=== PATIENT | female | born 1950 | race Caucasian/White ===

== ENCOUNTER 2016-10-01 14:59 | Outpatient (CLI) | payer MEDICARE, OTHER | END 2016-10-01 15:00 | disposition home or self-care (01) | DX: J18.9 Pneumonia, unspecified organism (principal) ==

== ENCOUNTER 2016-10-30 12:39 | Outpatient (CLI) | payer MEDICARE, OTHER | END 2016-10-30 12:40 | disposition home or self-care (01) | DX: J18.9 Pneumonia, unspecified organism (principal) ==

== ENCOUNTER 2016-10-30 14:02 | Outpatient (CLI) | payer MEDICARE, OTHER | END 2016-10-30 14:03 | disposition home or self-care (01) | DX: J84.10 Pulmonary fibrosis, unspecified (principal); J47.9 Bronchiectasis, uncomplicated ==

== ENCOUNTER 2017-02-11 13:11 | Outpatient (CLI) | payer MEDICARE, OTHER | END 2017-02-11 13:12 | disposition home or self-care (01) | DX: J84.10 Pulmonary fibrosis, unspecified (principal); J47.9 Bronchiectasis, uncomplicated ==

== ENCOUNTER 2017-08-06 10:51 | Outpatient (CLI) | payer MEDICARE, OTHER | END 2017-08-06 10:52 | disposition home or self-care (01) | LOC: LAB.F 10:51 | PROVIDERS: ATTEND Registered Nurse | DX: E03.9 Hypothyroidism, unspecified (principal) | CPT/HCPCS: 36415; 84443 ==

== ENCOUNTER 2017-08-10 10:59 | Outpatient (CLI) | payer MEDICARE, OTHER ==
[2017-08-11 04:21] LABS: TEST RESULT REPORT
[2017-08-11 04:25] LABS: TEST RESULT REPORT
== END 2017-08-10 11:00 | disposition home or self-care (01) ==
LOC: LAB.R 10:59
PROVIDERS: ATTEND Nurse Practitioner
DX: E03.9 Hypothyroidism, unspecified (principal)
CPT/HCPCS: 81599; 84439; 84481

== ENCOUNTER 2017-08-12 11:00 | Outpatient (CLI) | payer MEDICARE, OTHER | END 2017-08-12 11:01 | disposition home or self-care (01) | LOC: LAB.F 11:00 | PROVIDERS: ATTEND Registered Nurse | DX: E03.9 Hypothyroidism, unspecified (principal) | CPT/HCPCS: 36415; 84439; 84443; 84481 ==

== ENCOUNTER 2017-09-24 20:49 | Outpatient (CLI) | payer MEDICARE, OTHER | END 2017-09-24 20:50 | disposition critical access hospital (66) | LOC: EMS 20:49 | PROVIDERS: ATTEND Surgery | DX: S69.92XA Unspecified injury of left wrist, hand and finger(s), initial encounter (principal); V48.5XXA Car driver injured in noncollision transport accident in traffic accident, initial encounter; Y92.414 Local residential or business street as the place of occurrence of the external cause | CPT/HCPCS: A0425; A0427 ==

== ENCOUNTER 2017-09-24 21:21 | Emergency (ER) | payer OTHER, MEDICARE ==
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
[2017-09-24] MEDS ORDERED: ACETAMINOPHEN 500 MG TABLET PO STA (23:10)
[2017-09-24] MEDS ORDERED: BACITRACIN OINT TOP STA (23:10)
[2017-09-25 00:08] VITALS: BP 108/79
== END 2017-09-24 23:42 | disposition home or self-care (01) ==
LOC: EDUNIT# → ED 21:21
DX: S62.613A Displaced fracture of proximal phalanx of left middle finger, initial encounter for closed fracture (principal); S09.90XA Unspecified injury of head, initial encounter; S00.81XA Abrasion of other part of head, initial encounter; S20.319A Abrasion of unspecified front wall of thorax, initial encounter; S30.811A Abrasion of abdominal wall, initial encounter; S20.219A Contusion of unspecified front wall of thorax, initial encounter; S00.83XA Contusion of other part of head, initial encounter; S30.1XXA Contusion of abdominal wall, initial encounter; V49.9XXA Car occupant (driver) (passenger) injured in unspecified traffic accident, initial encounter; E03.9 Hypothyroidism, unspecified
CPT/HCPCS: 70450; 71020; 72125; 73130; 99284; A9270

== ENCOUNTER 2017-11-04 09:02 | Day surgery (SDC) | payer OTHER, MEDICARE ==
[2017-11-04] MEDS ORDERED: LACTATED RINGERS 1,000 ML IV ONE ×3 (09:25→11:30)
[2017-11-04] MEDS ORDERED: ceFAZolin 1 GM VIAL IV ONE (11:10)
[2017-11-04] MEDS ORDERED: ONDANSETRON 4 MG/2 ML VIAL IVP ONE (11:10)
[2017-11-04] MEDS ORDERED: ePHEDrine 50 MG/ML VIAL IVP ONE (11:10)
[2017-11-04] MEDS ORDERED: fentaNYL 100 MCG/2 ML VIAL IVP ONE (11:10)
[2017-11-04] MEDS ORDERED: PROPOFOL 200 MG/20 ML VIAL IVP ONE (11:10)
[2017-11-04] MEDS: LACTATED RINGERS 1,000 ML IV ONE (11:30)
[2017-11-04] MEDS ORDERED: BUPIVACAINE 0.5% PF 30 ML VIAL INFIL ONE (11:31)
[2017-11-04] MEDS: fentaNYL 100 MCG/2 ML VIAL ONE ×2 (11:54→12:07)
[2017-11-04] MEDS ORDERED: ACETAMINOPHEN 1,000 MG/100 ML 100 ML IV ONE (11:55)
[2017-11-04] MEDS: HYDROmorphone 1 MG/ML SYRINGE ONE ×4 (12:15→12:42)
[2017-11-04] MEDS ORDERED: KETOROLAC 15 MG/ML VIAL ONE (12:25)
[2017-11-04] MEDS ORDERED: HYDROcod/ACETAM 5/325 MG TABLET ONE (13:23)
[2017-11-04 14:39] VITALS: BP 112/61
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
== END 2017-11-04 09:03 | disposition home or self-care (01) ==
LOC: SDS 09:02
PROVIDERS: ATTEND Orthopaedic Surgery
PROC: 0PSV04Z Reposition Left Finger Phalanx with Internal Fixation Device, Open Approach (ICD-10-PCS; principal; 2017-11-04 10:00)
DX: S62.613P Displaced fracture of proximal phalanx of left middle finger, subsequent encounter for fracture with malunion (principal); J84.9 Interstitial pulmonary disease, unspecified; E03.9 Hypothyroidism, unspecified; F32.9 Major depressive disorder, single episode, unspecified; Z87.891 Personal history of nicotine dependence; L40.9 Psoriasis, unspecified
CPT/HCPCS: 26567; A9270; C1713; J0131; J1170; J7120

== ENCOUNTER 2019-06-08 13:20 | Outpatient (CLI) | payer MEDICARE, OTHER ==
--- NOTE | 2019-06-08 16:09 | XRAY Report ---
Reason: PAIN IN RIGHT FOOT Procedure Date: 06/08/2019 Accession Number: [id number] / [id number] Procedure: XR - Foot 3 View RT CPT Code: FULL RESULT: EXAM: RIGHT FOOT RADIOGRAPHY EXAM DATE: 06/08/2019 01:36 PM. CLINICAL HISTORY: Pain in right foot. Fall on stairs. COMPARISON: None. TECHNIQUE: 3 views. FINDINGS: Bones: Previous distal fibular and tibial fracture repairs. No acute foot fractures or bone lesions. Joints: Mild midfoot and first MTP joint degenerative changes. No subluxations. Soft Tissues: Normal. No soft tissue swelling. IMPRESSION: No acute right foot fracture or malalignment seen. [facility]
== END 2019-06-08 13:21 | disposition home or self-care (01) ==
LOC: DI 13:20
PROVIDERS: ATTEND Nurse Practitioner Family
DX: M19.071 Primary osteoarthritis, right ankle and foot (principal)

== ENCOUNTER 2019-07-06 11:57 | Emergency (ER) | payer MEDICARE, OTHER ==
--- NOTE | 2019-07-06 12:38 | ED Physician Documentation ---
PD HPI URI - Stated complaint Stated Complaint: SOA - Chief complaint Chief Complaint: Resp - History obtained from History obtained from: Patient PD PAST MEDICAL HISTORY - Past Medical History Respiratory: Shortness of breath, Other Endocrine/Autoimmune: HyPOthyroidism Psych: Depression Derm: Psoriasis - Past Surgical History Past Surgical History: Yes Ortho: Other HEENT: Cataracts - Present Medications Home Medications: Ambulatory Orders Medication Instructions Recorded Confirmed Citalopram [CeleXA] 40 mg PO DAILY 09/25/13 11/04/17 Levothyroxine [Synthroid] 75 mcg PO DAILY 09/25/13 11/04/17 Apremilast [Otezla] 30 mg PO DAILY 11/02/17 11/04/17 - Allergies Allergies/Adverse Reactions: Allergies Allergy/AdvReac Type Severity Reaction Status Date / Time No Known Drug Allergies Allergy Verified 11/02/17 16:17 - Social History Does the pt smoke?: No Smoking Status: Never smoker Does the pt drink ETOH?: Yes Does the pt have substance abuse?: No - Immunizations Immunizations are current?: Yes - POLST Patient has POLST: No Results - Vitals Vitals: Vital Signs - 24 hr 07/06/19 12:06 Temperature 36.5 C Respiratory 18 Rate Blood Pressure 147/92 H O2 Saturation 95 Oxygen O2 Source Nasal cannula
[2019-07-06] MEDS ORDERED: IPRATROPIUM/ALBUTEROL 3 ML NEB INH STA (12:43)
--- NOTE | 2019-07-06 12:45 | ED Physician Documentation ---
PD HPI DYSPNEA - Stated complaint Stated Complaint: SOA - Chief complaint Chief Complaint: Resp - History obtained from History obtained from: Patient - History of Present Illness Timing - onset: Other (This is a 69-year-old woman with history of pulmonary fibrosis, takes a rescue Xopenex inhaler and is maintained on 2.5 L of oxygen per minute. Over the last week she is had increased trouble breathing, with cough productive of scant sputum. She denies fevers, chills, or upper respiratory symptoms. No pedal edema or calf pain. No chest pain.) Review of Systems Constitutional: denies: Fever, Chills Nose: denies: Rhinorrhea / runny nose, Congestion Throat: denies: Sore throat Cardiac: denies: Chest pain / pressure, Palpitations, Pedal edema, Calf pain Respiratory: reports: Dyspnea, Cough, Wheezing PD PAST MEDICAL HISTORY - Past Medical History Respiratory: Shortness of breath, Other Endocrine/Autoimmune: HyPOthyroidism Psych: Depression Derm: Psoriasis - Past Surgical History Past Surgical History: Yes Ortho: Other HEENT: Cataracts - Present Medications Home Medications: Ambulatory Orders Medication Instructions Recorded Confirmed Citalopram [CeleXA] 40 mg PO DAILY 09/25/13 11/04/17 Levothyroxine [Synthroid] 75 mcg PO DAILY 09/25/13 11/04/17 Apremilast [Otezla] 30 mg PO DAILY 11/02/17 11/04/17 Doxycycline Hyclate 100 mg PO BID #20 capsule 07/06/19 dexAMETHasone [Decadron] 4 mg PO BIDWM #10 tablet 07/06/19 - Allergies Allergies/Adverse Reactions: Allergies Allergy/AdvReac Type Severity Reaction Status Date / Time No Known Drug Allergies Allergy Verified 11/02/17 16:17 - Social History Does the pt smoke?: No Smoking Status: Never smoker Does the pt drink ETOH?: Yes Does the pt have substance abuse?: No - Immunizations Immunizations are current?: Yes - POLST Patient has POLST: No PD ED PE NORMAL - Vitals Vital signs reviewed: Yes - General General: Alert and oriented X 3, No acute distress - HEENT HEENT: PERRL, EOMI - Neck Neck: Supple, no meningeal sign, No bony TTP - Cardiac Cardiac: RRR, No murmur - Respiratory Respiratory: Other (Mildly diminished and wheezy throughout without focal findings, minimally labored but speaking in full sentences.) - Abdomen Abdomen: Normal bowel sounds - Derm Derm: No rash - Extremities Extremities: No edema, No calf tenderness / cord - Neuro Neuro: Alert and oriented X 3, Normal speech Results - Vitals Vitals: Vital Signs - 24 hr 07/06/19 07/06/19 07/06/19 12:06 12:42 12:54 Temperature 36.5 C Heart Rate 82 66 Respiratory 18 17 18 Rate Blood Pressure 147/92 H 160/98 H O2 Saturation 95 100 Oxygen O2 Source Nasal cannula Oxygen Flow Rate 2.5 - Rads (name of study) 2v chest Radiology: EMP read contemporaneously (Bilateral upper airspace pulmonary fibrosis without obvious pneumonia.) PD MEDICAL DECISION MAKING - ED course ED course: 69-year-old woman with history of COPD and pulmonary fibrosis presents with an apparent exacerbation. Her vital signs are unremarkable. She felt better after a DuoNeb. She had bad side effects with prednisone before and is given Decadron and doxycycline. Departure - Departure Disposition: 01 Home, Self Care Clinical Impression: Pulmonary fibrosis Condition: Good Record reviewed to determine appropriate education?: Yes Instructions: ED Bronchitis Asthmatic Prescriptions: dexAMETHasone [Decadron] 4 mg PO BIDWM #10 tablet Doxycycline Hyclate 100 mg PO BID #20 capsule Comments: Call your doctor to arrange a follow-up appointment, make the next available appointment. In the interim, return anytime if worse or if new symptoms develop.
--- NOTE | 2019-07-06 13:32 | XRAY Report ---
Reason: cough dyspnea Procedure Date: 07/06/2019 Accession Number: [id number] / [id number] Procedure: XR - Chest 2 View X-Ray CPT Code: 84666 FULL RESULT: EXAM: CHEST RADIOGRAPHY EXAM DATE: 07/06/2019 01:20 PM. CLINICAL HISTORY: Cough dyspnea. COMPARISON: CHEST 2 VIEW 06/23/2019 11:26 AM. TECHNIQUE: 2 views. FINDINGS: Lungs/Pleura: There are bilateral upper lobe reticular opacities with architectural distortion consistent with fibrosis. The pattern of fibrosis appears without significant change. Lung volumes are stable. Negative for pleural effusion and pneumothorax. Mediastinum: Heart size is normal. Trachea is midline. Other: None. IMPRESSION: Bilateral upper lobe predominant pulmonary fibrosis and scarring. No superimposed acute airspace disease. [facility]
[2019-07-06 13:55] VITALS: BP 139/84
== END 2019-07-06 14:06 | disposition home or self-care (01) ==
LOC: ED 11:57
DX: J84.10 Pulmonary fibrosis, unspecified (principal); J44.1 Chronic obstructive pulmonary disease with (acute) exacerbation
CPT/HCPCS: 71046; 94664; 99283

== ENCOUNTER 2019-07-18 21:13 | Outpatient (CLI) | payer MEDICARE, OTHER | END 2019-07-18 21:14 | disposition critical access hospital (66) | LOC: EMS 21:13 | PROVIDERS: ATTEND Surgery | DX: R53.1 Weakness (principal); R73.09 Other abnormal glucose; W18.30XA Fall on same level, unspecified, initial encounter; Y92.009 Unspecified place in unspecified non-institutional (private) residence as the place of occurrence of the external cause | CPT/HCPCS: A0425; A0429 ==

== ENCOUNTER 2019-07-18 21:55 | Emergency (ER) | payer MEDICARE, OTHER ==
--- NOTE | 2019-07-18 22:27 | ED Physician Documentation ---
History of Present Illness - Stated complaint Stated Complaint: GLF - Chief complaint Chief Complaint: Neuro - History obtained from History obtained from: Patient, EMS - History of Present Illness Timing: Today, How many hours ago (6) Pain level now: 0 Improved by: nothing Worsened by: no exacerbating factors - Additonal information Additional information: patient is brought in by ambulance. Patient had urinated while sitting on toilet, stood up, and had brief syncopal episode, falling forward after brief program of generalized weakness and lightheadedness. This was approximately six hours ago. She found that she was continuing to have generalized weakness, and thus could not stand back up. She crawled around on the floor for six hours until she could get to her computer, and wrote for help on a social media website. As a result of this, someone called 911. Her blood sugar in the field was 44, this improved to 91 by the time of ED arrival after given orange juice and peanut butter. She says she feels much better, but still has some mild residual generalized weakness. she denies any injury, denies pain, denies CANO. she isnt certain whether she lost consciousness or not. Review of Systems Constitutional: reports: Reviewed and negative Eyes: reports: Reviewed and negative Ears: reports: Reviewed and negative Nose: reports: Reviewed and negative Throat: reports: Reviewed and negative Cardiac: reports: Reviewed and negative Respiratory: reports: Dyspnea (baseline (COPD, idiopathic pulmonary fibrosis)). denies: Cough GI: reports: Reviewed and negative : denies: Dysuria, Frequency Musculoskeletal: reports: Reviewed and negative Neurologic: reports: Generalized weakness (nearly resolved), Syncope, LOC (likely had brief LOC). denies: Focal weakness, Numbness, Altered mental status, Headache, Head injury PD PAST MEDICAL HISTORY - Past Medical History Past Medical History: Yes Cardiovascular: None Respiratory: COPD, Shortness of breath, Other Neuro: None Endocrine/Autoimmune: HyPOthyroidism HEENT: None Psych: Depression Derm: Psoriasis Other Past Medical History: idiopathic pulmonary fibrosis - Past Surgical History Past Surgical History: Yes Ortho: Other HEENT: Cataracts - Present Medications Home Medications: Ambulatory Orders Medication Instructions Recorded Confirmed Citalopram [CeleXA] 40 mg PO DAILY 09/25/13 11/04/17 Levothyroxine [Synthroid] 75 mcg PO DAILY 09/25/13 11/04/17 Apremilast [Otezla] 30 mg PO DAILY 11/02/17 11/04/17 Doxycycline Hyclate 100 mg PO BID #20 capsule 07/06/19 dexAMETHasone [Decadron] 4 mg PO BIDWM #10 tablet 07/06/19 Nitrofurantoin Monohyd/M-Cryst 100 mg PO BID #9 capsule 07/19/19 [Macrobid 100 mg Capsule] - Allergies Allergies/Adverse Reactions: Allergies Allergy/AdvReac Type Severity Reaction Status Date / Time No Known Drug Allergies Allergy Verified 07/18/19 22:13 - Social History Does the pt smoke?: No Smoking Status: Former smoker Does the pt drink ETOH?: Yes Does the pt have substance abuse?: No - Immunizations Immunizations are current?: Yes - POLST Patient has POLST: No PD ED PE NORMAL - Vitals Vital signs reviewed: Yes - General General: Alert and oriented X 3, No acute distress, Well developed/nourished - HEENT HEENT: Atraumatic, PERRL, EOMI, Moist mucous membranes - Neck Neck: Supple, no meningeal sign, No bony TTP - Cardiac Cardiac: RRR, No murmur, No gallop, No rub - Respiratory Respiratory: No respiratory distress, Other (bilateral crackles c/w pulmonary fibrosis) - Abdomen Abdomen: Soft, Non tender - Back Back: No CVA TTP, No spinal TTP - Derm Derm: Normal color, Warm and dry - Extremities Extremities: No tenderness to palpate, Normal ROM s pain, No edema - Neuro Neuro: Alert and oriented X 3, growth media mixer mushroom 2-12 intact, No motor deficit, No sensory deficit, Normal speech Eye Opening: Spontaneous Motor: Obeys Commands Verbal: Oriented GCS Score: 15 Results - Vitals Vitals: Oxygen O2 Source Room air - EKG (time done) No standard instances Rate: Rate (enter#) (87) Rhythm: NSR [place]: LAD Intervals: Normal VA Ischemia: Normal ST segments, Q waves (III, aVF) - Labs Labs: Microbiology 07/18/19 23:05 Urine Culture - Final Urine,Clean Catch 10-50,000 COLONIES/ML Polymicrobial growth including potential pathogens. This is suggestive of skin or other contamination. Laboratory Tests 07/18/19 07/18/19 07/18/19 22:36 22:36 22:36 WBC 9.5 RBC 3.85 L Hgb 12.5 Hct 38.6 MCV 100.3 H MCH 32.5 H MCHC 32.4 RDW 13.9 Plt Count 254 MPV 9.6 Neut # (Auto) 4.0 Lymph # (Auto) 3.5 [place] # (Auto) 1.1 H Eos # (Auto) 0.9 H Baso # (Auto) 0.0 Absolute Nucleated RBC 0.00 Nucleated RBC % 0.0 PT 10.3 INR 0.9 Sodium 138 Potassium 3.8 Chloride 97 L Carbon Dioxide 30 Anion Gap 11.0 BUN 11 Creatinine 0.8 Estimated GFR (MDRD) 71 L Glucose 93 Calcium 8.5 Total Bilirubin 0.5 AST 30 ALT 15 Alkaline Phosphatase 73 Total Creatine Kinase 100 CK-MB (CK-2) Troponin I High Sens Total Protein 7.2 Albumin 3.7 Globulin 3.5 Albumin/Globulin Ratio 1.1 Lipase 24 Urine Color Urine Clarity Urine pH Ur Specific [place] Urine Protein Urine Glucose (UA) Urine Ketones Urine Occult Blood Urine Nitrite Urine Bilirubin Urine Urobilinogen Ur Leukocyte Esterase Urine RBC Urine WBC Ur Squamous Epith Cells Urine Bacteria Ur Microscopic Review Urine Culture Comments 07/18/19 07/18/19 22:36 23:05 WBC RBC Hgb Hct MCV MCH MCHC RDW Plt Count MPV Neut # (Auto) Lymph # (Auto) [place] # (Auto) Eos # (Auto) Baso # (Auto) Absolute Nucleated RBC Nucleated RBC % PT INR Sodium Potassium Chloride Carbon Dioxide Anion Gap BUN Creatinine Estimated GFR (MDRD) Glucose Calcium Total Bilirubin AST ALT Alkaline Phosphatase Total Creatine Kinase CK-MB (CK-2) 4.6 Troponin I High Sens 5.2 Total Protein Albumin Globulin Albumin/Globulin Ratio Lipase Urine Color YELLOW Urine Clarity CLEAR Urine pH 5.5 Ur Specific [place] <=1.005 Urine Protein NEGATIVE Urine Glucose (UA) NEGATIVE Urine Ketones NEGATIVE Urine Occult Blood NEGATIVE Urine Nitrite NEGATIVE Urine Bilirubin NEGATIVE Urine Urobilinogen 0.2 (NORMAL) Ur Leukocyte Esterase SMALL H Urine RBC 0-5 Urine WBC 6-10 H Ur Squamous Epith Cells FEW Squamous Urine Bacteria Few Ur Microscopic Review INDICATED Urine Culture Comments INDICATED - Rads (name of study) chest xray Radiology: Prelim report reviewed, See rad report PD MEDICAL DECISION MAKING - ED course Complexity details: reviewed results, re-evaluated patient, considered differential, d/w patient ED course: symptoms (generalized weakness) had nearly resolved by the time of initial ED evaluation, and she was asymptomatic by the time of disposition. she is comfortable going home and understands she needs to be reevaluated by PMD regarding this syncopal episode. incidentally noted to have UA results s/o UTI; while not symptomatic, agrees with treatment with brief course of macrobid Departure - Departure Disposition: 01 Home, Self Care Clinical Impression: Hypoglycemia Syncope Qualifiers: Syncope type: unspecified Qualified Code(s): R55 - Syncope and collapse Urinary tract infection Qualifiers: Urinary tract infection type: acute cystitis Hematuria presence: without hematuria Qualified Code(s): N30.00 - Acute cystitis without hematuria Condition: Good Instructions: ED Blood Sugar Low Non Diabetic, ED Fainting Unkn Cause, ED UTI Cystitis Female Follow-Up: Rachel Venegas ARNP [Primary Care Provider] - Within 1 week Prescriptions: Nitrofurantoin Monohyd/M-Cryst [Macrobid 100 mg Capsule] 100 mg PO BID #9 capsule Discharge Date/Time: 07/19/19 02:12
[2019-07-18 22:43] LABS: BASOPHILS % (AUTO) 0.3 %; EOSINOPHILS # (AUTO) 0.9 10^3/uL (0.0-0.7); EOSINOPHILS % (AUTO) 9.3 %; HGB - HEMOGLOBIN 12.5 g/dL (12.0-16.0); LYMPHOCYTES # (AUTO) 3.5 10^3/uL (1.5-3.5); LYMPHOCYTES % (AUTO) 36.5 %; MEAN CORPUSCULAR HEMOGLOBIN 32.5 pg (27.0-31.0); MEAN CORPUSCULAR HGB CONC 32.4 g/dL (32.0-36.0); MEAN CORPUSCULAR VOLUME 100.3 fL (81.0-99.0); MEAN PLATELET VOLUME 9.6 fL (7.9-10.8); MONOCYTES # (AUTO) 1.1 10^3/uL (0.0-1.0); MONOCYTES % (AUTO) 11.3 %; NEUTROPHILS % (AUTO) 41.5 %; PLT - PLATELET COUNT 254 10^3/uL (130-450); RED BLOOD COUNT 3.85 10^6/uL (4.20-5.40); RED CELL DISTRIBUTION WIDTH 13.9 % (12.0-15.0); WHITE BLOOD COUNT 9.5 x10^3/uL (4.8-10.8)
[2019-07-18 22:48] LABS: INR 0.9 (0.8-1.2); PT - PROTHROMBIN TIME 10.3 secs (9.9-12.6)
[2019-07-18] MEDS ORDERED: SODIUM CHLORIDE 0.9% 1,000 ML IV STA (22:53)
[2019-07-18 22:55] LABS: ALBUMIN 3.7 g/dL (3.2-5.5); ALBUMIN/GLOBULIN RATIO 1.1 (1.0-2.2); BILIRUBIN,TOTAL 0.5 mg/dL (0.2-1.0); CALCIUM 8.5 mg/dL (8.5-10.3); CREATININE 0.8 mg/dL (0.4-1.0); TOTAL PROTEIN 7.2 g/dL (6.7-8.2)
[2019-07-18 23:02] LABS: CREATINE KINASE MB 4.6 ng/mL (0.6-6.3)
[2019-07-18 23:13] LABS: BILIRUBIN,URINE NEGATIVE (NEGATIVE); CLARITY,URINE CLEAR (CLEAR); GLUCOSE, URINE (UA) NEGATIVE (NEGATIVE); KETONES,URINE (UA) NEGATIVE (NEGATIVE); LEUKOCYTE ESTERASE, URINE SMALL (NEGATIVE); NITRITE,URINE NEGATIVE (NEGATIVE); OCCULT BLOOD,URINE NEGATIVE (NEGATIVE); PH,URINE 5.5 PH (5.0-7.5); PROTEIN,URINE NEGATIVE (NEGATIVE); UROBILINOGEN,URINE 0.2 (NORMAL) E.U./dL (NORMAL)
[2019-07-18 23:19] LABS: BACTERIA,URINE Few /HPF (None Seen); RBC,URINE 0-5 /HPF (0-5); SQUAMOUS EPITHELIAL CELL,UR FEW Squamous (<= Few)
--- NOTE | 2019-07-18 23:35 | XRAY Report ---
Reason: syncope Procedure Date: 07/18/2019 Accession Number: [id number] / [id number] Procedure: XR - Chest 2 View X-Ray CPT Code: 82084 FULL RESULT: EXAM: CHEST RADIOGRAPHY EXAM DATE: 07/18/2019 11:04 PM. CLINICAL HISTORY: Syncope. COMPARISON: CHEST 2 VIEW 07/06/2019 1:13 PM CHEST 2 VIEW 06/23/2019 11:26 AM CHEST 2 VIEW PA/LAT 09/24/2017 10:06 PM. TECHNIQUE: 2 views. FINDINGS: Lungs/Pleura: Stable fibrotic changes throughout both lungs, predominantly peripherally. No definite superimposed infiltrate. No large pleural effusions or pneumothorax. Mediastinum: Heart and mediastinal contours are unremarkable. Other: None. IMPRESSION: 1. Stable interstitial lung disease. 2. No definite evidence of superimposed acute cardiopulmonary process. RADIA
[2019-07-19] MEDS ORDERED: NITROFURANTOIN MACRO 100 MG CAPSULE PO STA (00:59)
[2019-07-19 01:02] VITALS: BP 118/64
== END 2019-07-19 02:12 | disposition home or self-care (01) ==
LOC: EDUNIT# → ED 21:55
DX: E16.2 Hypoglycemia, unspecified (principal); R55 Syncope and collapse; N30.00 Acute cystitis without hematuria; J44.9 Chronic obstructive pulmonary disease, unspecified; J84.10 Pulmonary fibrosis, unspecified; Z87.891 Personal history of nicotine dependence
CPT/HCPCS: 36415; 71046; 80053; 81001; 82550; 82553; 83690; 84484; 85025; 85610; 87086; 93005; 99284; A9270; 81003

== ENCOUNTER 2019-07-19 02:13 | Outpatient (CLI) | payer MEDICARE, OTHER | END 2019-07-19 02:14 | disposition home or self-care (01) | LOC: EMS 02:13 | PROVIDERS: ATTEND Surgery | DX: R55 Syncope and collapse (principal); Z99.81 Dependence on supplemental oxygen | CPT/HCPCS: A0425; A0428 ==

== ENCOUNTER 2019-07-20 12:15 | Outpatient (CLI) | payer MEDICARE, OTHER ==
--- NOTE | 2019-07-21 10:32 | Ultrasound Report ---
Reason: ABN MAMMO Procedure Date: 07/20/2019 Accession Number: [id number] / [id number] Procedure: US - Breast Unilateral Limited CPT Code: FULL RESULT: EXAM: Diagnostic Dig Bilat, Breast Unilateral Limited DATE: 07/20/2019 3:36 PM CLINICAL HISTORY: Palpable lump right breast. Prior history of benign right breast biopsy demonstrating fat necrosis. COMPARISON: 02/25/2016, 01/20/2016, 05/13/2011, 11/28/2010, 05/22/2010, 05/15/2010, 05/06/2010, 04/16/2009. TECHNIQUE: (B) - Bilateral CC and MLO views were obtained. PARENCHYMAL PATTERN: (A) - The breasts demonstrate scattered fibroglandular densities bilaterally. FINDINGS: Left breast: No significant interval change. There are no suspicious masses, calcifications, or areas of distortion. Right breast: Stable biopsy clip. Corresponding to the palpable lump is a new ill-defined area of vague increased soft tissue density at approximately the 8:00 position 6 cm from the nipple. No other interval change on the right. RIGHT BREAST ULTRASOUND: TECHNIQUE: Real-time scanning by the industrial health and safety professor was saved static images reviewed. FINDINGS: Corresponding to the palpable and mammographic finding in the 7:00 position 5 cm from the nipple is a superficial fairly well-defined 2.4 x 0.8 x 2.1 cm vascular area of increased echogenicity containing a few small cystic components, the largest 5 mm in diameter. IMPRESSION: Probably Benign. BI-RADS category 3. Right breast possible focal fat necrosis. Suggest 3 month follow-up right breast ultrasound. Negative left breast. RECOMMENDATION: (3MOS) - Recommend 3 month follow-up exam. Right breast ultrasound BI-RADS CATEGORY: (3) - Probably Benign. Discussed with the patient who prefers 3 month follow-up ultrasound as opposed to ultrasound guided core biopsy. STANDARD QUALIFYING STATEMENTS: 1. This examination was not reviewed with the aid of Computer-Aided Detection (CAD). 2. A negative or benign imaging report should not preclude biopsy if clinically suspicious findings are present. 3. Dense breasts may obscure an underlying neoplasm. 4. This examination was reviewed with the aid of 3D breast imaging (tomosynthesis).
== END 2019-07-20 12:16 | disposition home or self-care (01) ==
LOC: DI 12:15
PROVIDERS: ATTEND Nurse Practitioner Family
DX: N63.13 Unspecified lump in the right breast, lower outer quadrant (principal)
CPT/HCPCS: 76642; 77066

== ENCOUNTER 2019-08-04 11:48 | Outpatient (CLI) | payer MEDICARE, OTHER ==
[2019-08-04 18:18] LABS: ALBUMIN 3.9 g/dL (3.2-5.5); ALBUMIN/GLOBULIN RATIO 1.1 (1.0-2.2); BILIRUBIN,TOTAL 0.4 mg/dL (0.2-1.0); CALCIUM 9.4 mg/dL (8.5-10.3); CREATININE 0.8 mg/dL (0.4-1.0); TOTAL PROTEIN 7.4 g/dL (6.7-8.2)
== END 2019-08-04 11:49 | disposition home or self-care (01) ==
LOC: LAB.S 11:48
PROVIDERS: ATTEND Nurse Practitioner Family
DX: M54.2 Cervicalgia (principal)
CPT/HCPCS: 36415; 80053

== ENCOUNTER 2019-08-04 12:50 | Outpatient (CLI) | payer MEDICARE, OTHER ==
--- NOTE | 2019-08-06 01:21 | XRAY Report ---
Reason: PAIN IN RT SHOULDER Procedure Date: 08/04/2019 Accession Number: [id number] / [id number] Procedure: XR - Thoracic Spine 2 View CPT Code: Final Report FULL RESULT: EXAM: THORACIC SPINE RADIOGRAPHY EXAM DATE: 08/04/2019 03:14 PM. CLINICAL HISTORY: PAIN IN RT SHOULDER. COMPARISON: CHEST 2 VIEW 07/18/2019 11:01 PM. TECHNIQUE: 2 views. 3 images. FINDINGS: Alignment: No spondylolisthesis or scoliosis. Bones: No fractures or bone lesions. Anterior osteophytes are present at multiple disk levels. Disks: Mild diffuse disk space narrowing in the thoracic spine. Soft Tissues: Unremarkable as visualized. Interstitial prominence in the lungs. IMPRESSION: 1. No radiographic evidence of fracture. 2. Degenerative changes of thoracic spine. 3. Interstitial prominence in visualized lungs. RADIA
--- NOTE | 2019-08-06 01:23 | XRAY Report ---
Reason: PAIN IN RIGHT SHOULDER Procedure Date: 08/04/2019 Accession Number: [id number] / [id number] Procedure: XR - Cervical Spine 2 View CPT Code: Final Report FULL RESULT: EXAM: CERVICAL SPINE RADIOGRAPHY EXAM DATE: 08/04/2019 03:14 PM. CLINICAL HISTORY: PAIN IN RIGHT SHOULDER. COMPARISONS: XR CERVICAL SPINE 2 OR 3 VIEWS 06/10/2009 11:02 AM. TECHNIQUE: 3 views. 4 images. FINDINGS: Alignment: Straightening of cervical spine. No scoliosis or significant spondylolisthesis. Bones: The cervical vertebral bodies and posterior elements are well visualized from the skull base through C7-T1. No evidence of fractures or bone lesions. Disks: Mild disk space narrowing and cervical spine, most prominent at C5-C6. Facets: Mild facet degenerative changes in the cervical spine. Soft Tissues: Normal. No prevertebral soft tissue swelling. Interstitial prominence in the visualized lungs. IMPRESSION: 1. No radiographic evidence of acute fracture. If there is clinical concern for fracture, CT can further assess. 2. Degenerative changes of cervical spine, most prominent at C5-C6. 3. Interstitial prominence in visualized lungs. RADIA
--- NOTE | 2019-08-06 01:45 | XRAY Report ---
Reason: PAIN IN RIGHT SHOULDER Procedure Date: 08/04/2019 Accession Number: [id number] / [id number] Procedure: XR - Shoulder 3 View RT CPT Code: Final Report FULL RESULT: EXAM: RIGHT SHOULDER RADIOGRAPHY EXAM DATE: 08/04/2019 03:14 PM. CLINICAL HISTORY: PAIN IN RIGHT SHOULDER. COMPARISON: None. TECHNIQUE: 3 views. FINDINGS: Bones: No acute displaced fractures or suspicious bony lesion. Joints: No dislocation. There is mild to moderate degenerative change. Soft Tissues: Nonspecific interstitial abnormality within the right hemithorax. No significant soft tissue swelling. IMPRESSION: No acute osseous abnormality demonstrated. RADIA
== END 2019-08-04 12:51 | disposition home or self-care (01) ==
LOC: DI 12:50
PROVIDERS: ATTEND Nurse Practitioner Family
DX: M25.511 Pain in right shoulder (principal); M50.322 Other cervical disc degeneration at C5-C6 level; M51.34 Other intervertebral disc degeneration, thoracic region
CPT/HCPCS: 36415; 72040; 72070; 80053

== ENCOUNTER 2019-08-24 20:27 | Outpatient (CLI) | payer MEDICARE, OTHER | END 2019-08-24 20:28 | disposition EMS.NT | LOC: EMS 20:27 | PROVIDERS: ATTEND Surgery | DX: S89.91XA Unspecified injury of right lower leg, initial encounter (principal); W10.8XXA Fall (on) (from) other stairs and steps, initial encounter; Y92.009 Unspecified place in unspecified non-institutional (private) residence as the place of occurrence of the external cause ==

== ENCOUNTER 2019-08-24 22:13 | Emergency (ER) | payer MEDICARE, OTHER ==
--- NOTE | 2019-08-25 01:25 | XRAY Report ---
Reason: fall knee pain Procedure Date: 08/25/2019 Accession Number: [id number] / [id number] Procedure: XR - Knee 4 View RT CPT Code: Final Report FULL RESULT: EXAM: RIGHT KNEE RADIOGRAPHY EXAM DATE: 08/25/2019 01:04 AM CLINICAL HISTORY: Fall with knee pain. COMPARISON: None. TECHNIQUE: 4 views. FINDINGS: Bones: Small avulsion fracture off the medial tibial plateau. No other fracture seen. Joints: No malalignment or large effusion. Soft Tissues: Medial swelling. IMPRESSION: 1. Possible small nondisplaced avulsion fracture off the medial tibia with adjacent soft tissue swelling. Correlate for site of pain. Differential would include a small bone spur. 2. If real, this fracture can be associated with medial meniscal and PCL injuries. Given lack of an obvious joint effusion, however, significant internal derangement may not be present. If indicated, nonemergent MRI could be considered. RADIA
--- NOTE | 2019-08-25 02:34 | ED Physician Documentation ---
PD HPI LOWER EXT INJURY - Stated complaint Stated Complaint: GLF/RT KNEE PX - Chief complaint Chief Complaint: Ext Problem - History obtained from History obtained from: Patient, Family - History of Present Illness PD HPI LOW EXT INJURY LOCATION: Right, Knee Type of injury: Fall Where injury occurred: Home Timing - onset: Enter time (0900), Today Timing - duration: Hours Timing - details: Abrupt onset, Still present Improved by: Rest, Immobilization Worsened by: Moving, Palpating Associated symptoms: Swelling. No: Weakness, Numbness, Tingling Contributing factors: No: Anticoagulated Similar symptoms before: Has not had sx before Recently seen: Not recently seen - Additional information Additional information: 69-year-old female was in her home today going down her narrow spiral staircase when she missed a step and fell forward landing on both of her knees. She inju red the right knee significantly and the left knee to a lesser extent. She ended up spending the entire day on the floor from 9 AM until her brother came to get her when she did not show up for Thanksgiving dinner. The patient states that she was not able to get up on her knees secondary to the pain on her knees and she was not able to get to the phone or to the couch. She does not have a lifeline. She is on oxygen for idiopathic pulmonary fibrosis and she was able to maintain her oxygen throughout the day. Review of Systems Constitutional: denies: Fever Eyes: denies: Decreased vision Ears: denies: Ear pain Nose: denies: Congestion Throat: denies: Sore throat Respiratory: denies: Cough GI: denies: Vomiting : denies: Dysuria Skin: denies: Rash Musculoskeletal: reports: Extremity pain, Joint pain, Pain with weight bearing. 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 : None HEENT: None Psych: Depression Musculoskeletal: None Derm: Psoriasis - Past Surgical History Past Surgical History: Yes Ortho: Other HEENT: Cataracts - Present Medications Home Medications: Ambulatory Orders Medication Instructions Recorded Confirmed Citalopram [CeleXA] 40 mg PO DAILY 09/25/13 11/04/17 Levothyroxine [Synthroid] 75 mcg PO DAILY 09/25/13 11/04/17 Apremilast [Otezla] 30 mg PO DAILY 11/02/17 11/04/17 Doxycycline Hyclate 100 mg PO BID #20 capsule 07/06/19 dexAMETHasone [Decadron] 4 mg PO BIDWM #10 tablet 07/06/19 Nitrofurantoin Monohyd/M-Cryst 100 mg PO BID #9 capsule 07/19/19 [Macrobid 100 mg Capsule] - Allergies Allergies/Adverse Reactions: Allergies Allergy/AdvReac Type Severity Reaction Status Date / Time No Known Drug Allergies Allergy Verified 08/24/19 22:28 - Social History Does the pt smoke?: No Smoking Status: Never smoker Does the pt drink ETOH?: Yes Does the pt have substance abuse?: No - Immunizations Immunizations are current?: Yes - POLST Patient has POLST: No PD ED PE NORMAL - Vitals Vital signs reviewed: Yes (hypertensive ) - General General: Alert and oriented X 3, No acute distress, Well developed/nourished - HEENT HEENT: Atraumatic, PERRL, EOMI - Respiratory Respiratory: No respiratory distress - Derm Derm: Normal color, Warm and dry, No rash - Extremities Extremities: No deformity, No edema, Other (There is pain to the medial joint line and to the medial patella. There is no obvious effusion. The medial joint opens with valgus forces applied and this is as compared to the left knee. The a nterior drawer is negative. distal n/v is intact ) - Neuro Neuro: Alert and oriented X 3, toter 2-12 intact, No motor deficit, No sensory deficit, Normal speech Eye Opening: Spontaneous Motor: Obeys Commands Verbal: Oriented GCS Score: 15 - Psych Psych: Normal mood, Normal affect Results - Vitals Vitals: Vital Signs - 24 hr 08/24/19 08/25/19 22:23 01:06 Temperature 36.3 C L Heart Rate 85 92 Respiratory 16 18 Rate Blood Pressure 156/70 H 162/90 H O2 Saturation 99 100 Oxygen O2 Source Nasal cannula - Rads (name of study) right knee Radiology: Prelim report reviewed (Impression: 1. Possible small nondisplaced avulsion fracture off the medial tibia with adjacent soft tissue swelling. Correlate for site of pain. Differential would include a small bone spur. If real, this fracture can be associated with medial meniscal and PCL injuries. Given lack of an obvious joint effusion, however, significant internal derangement may not be present. If indicated, nonemergent MRI could be considered.), EMP read indepedently, See rad report Procedures - Splint (location) right knee Splint applied by: Tech Type of splint: Other (knee immobilizer) Other: Patient tolerated well, No complications, Neurovascular intact, Good alignment PD MEDICAL DECISION MAKING - ED course Complexity details: reviewed results, re-evaluated patient, considered differential, d/w patient, d/w family ED course: 69-year-old female with a history of idiopathic pulmonary fibrosis has been on the floor today in her home after falling and landing on her knees. She has a medial collateral ligament sprain on the right side and she is placed into a knee immobilizer and is able to bear weight and walk. She will have follow-up with orthopedics. Departure - Departure Disposition: 01 Home, Self Care Clinical Impression: Medial collateral ligament sprain of knee Qualifiers: Encounter type: initial encounter Laterality: right Qualified Code(s): S83.411A - Sprain of medial collateral ligament of right knee, initial encounter Condition: Stable Instructions: ED Sprain Knee Collateral Ligaments Follow-Up: Rachel Venegas ARNP [Primary Care Provider] - [facility] [Provider Group]
[2019-08-25 03:12] VITALS: BP 153/68
== END 2019-08-25 03:05 | disposition home or self-care (01) ==
LOC: ED 22:13
DX: S83.411A Sprain of medial collateral ligament of right knee, initial encounter (principal); W10.8XXA Fall (on) (from) other stairs and steps, initial encounter; Y92.009 Unspecified place in unspecified non-institutional (private) residence as the place of occurrence of the external cause; J84.112 Idiopathic pulmonary fibrosis; Z99.81 Dependence on supplemental oxygen
CPT/HCPCS: 99282; 99283

== ENCOUNTER 2019-09-06 09:43 | Outpatient (CLI) | payer MEDICARE, OTHER ==
[2019-09-06 19:30] LABS: ALBUMIN 3.8 g/dL (3.2-5.5); ALBUMIN/GLOBULIN RATIO 1.1 (1.0-2.2); BILIRUBIN,TOTAL 0.6 mg/dL (0.2-1.0); CALCIUM 9.1 mg/dL (8.5-10.3); CREATININE 0.8 mg/dL (0.4-1.0); TOTAL PROTEIN 7.2 g/dL (6.7-8.2)
== END 2019-09-06 09:44 | disposition home or self-care (01) ==
LOC: LAB.S 09:43
PROVIDERS: ATTEND Registered Nurse
DX: M54.2 Cervicalgia (principal); E03.9 Hypothyroidism, unspecified
CPT/HCPCS: 36415; 80053; 84443

== ENCOUNTER 2019-10-13 14:53 | Outpatient (CLI) | payer MEDICARE ==
--- NOTE | 2019-10-15 06:26 | XRAY Report ---
Reason: ACUTE BACTERIAL BRONCHITIS Procedure Date: 10/13/2019 Accession Number: [id number] / [id number] Procedure: XR - Chest 2 View X-Ray CPT Code: 21907 Final Report FULL RESULT: EXAM: CHEST RADIOGRAPHY EXAM DATE: 10/13/2019 03:54 PM. CLINICAL HISTORY: ACUTE BACTERIAL BRONCHITIS. COMPARISON: 07/18/2019. TECHNIQUE: 2 views. FINDINGS: Lungs/Pleura: Chronic bilateral reticulonodular infiltrates. No new alveolar consolidation or pleural effusion seen. No pneumothorax. Mediastinum: Heart and mediastinal contours are unremarkable. Aortic atherosclerosis. Other: None. IMPRESSION: 1. Chronic bilateral reticulonodular infiltrates possibly representing fibrosis. 2. No acute interval change. RADIA
== END 2019-10-13 14:54 | disposition home or self-care (01) ==
LOC: DI 14:53
PROVIDERS: ATTEND Registered Nurse
DX: R91.8 Other nonspecific abnormal finding of lung field (principal)
CPT/HCPCS: 71046

== ENCOUNTER 2019-10-27 14:14 | Outpatient (CLI) | payer MEDICARE ==
--- NOTE | 2019-10-27 15:33 | XRAY Report ---
Reason: DYSPNEA Procedure Date: 10/27/2019 Accession Number: [id number] / [id number] Procedure: XRS - Chest 2 View X-Ray CPT Code: 34498 Final Report FULL RESULT: EXAM: CHEST RADIOGRAPHY EXAM DATE: 10/27/2019 02:23 PM. CLINICAL HISTORY: Dyspnea. COMPARISON: CHEST 2 VIEW 10/13/2019 2:59 PM. CHEST W/O 02/11/2017 1:18 PM. TECHNIQUE: 2 views. FINDINGS: Lungs/Pleura: Again seen is underlying chronic coarse interstitial and reticular nodular infiltrates in both lungs. Lung volumes are slightly decreased as compared to prior. No new or increasing infiltrate or effusion. Mediastinum: Heart and mediastinal contours are unremarkable. Other: None. IMPRESSION: 1. Stable pulmonary fibrosis. Low lung volumes. RADIA
== END 2019-10-27 14:15 | disposition home or self-care (01) ==
LOC: DI.S 14:14
PROVIDERS: ATTEND Registered Nurse
DX: J84.10 Pulmonary fibrosis, unspecified (principal)
CPT/HCPCS: 71046

== ENCOUNTER 2019-12-04 13:41 | Outpatient (CLI) | payer MEDICARE ==
--- NOTE | 2019-12-04 15:24 | Ultrasound Report ---
Reason: 6 MO F/U - LUMP IN RT BREAST Procedure Date: 12/04/2019 Accession Number: [id number] / [id number] Procedure: US - Breast Unilateral Limited CPT Code: Final Report FULL RESULT: EXAM: Breast Unilateral Limited DATE: 12/04/2019 2:52 PM CLINICAL HISTORY: 6 MO F/U - LUMP IN RT BREAST COMPARISON: 07/21/2019. TECHNIQUE: Targeted ultrasound was performed of the right breast in the area of clinical concern at 8 o'clock and 5 cm distance from the nipple. Color Doppler was employed as appropriate. FINDINGS: Previously seen grouping of 2 anechoic immediately subdermal cyst measuring up to 0.4 and 0.3 cm respectively with increased through transmission and no convincing solid soft tissue component are again seen. The previously seen surrounding hyperemia by limited color Doppler is no longer demonstrated. Findings have not enlarged in the interval and there is no new architectural distortion. Findings remain probably benign. IMPRESSION: Probable benign findings RECOMMENDATION: Recommend diagnostic right breast mammogram and ultrasound in 6 months at the time of annual left breast screening mammogram. BIRADS CATEGORY 3 RADIA
== END 2019-12-04 13:42 | disposition home or self-care (01) ==
LOC: DI 13:41
PROVIDERS: ATTEND Nurse Practitioner Family
DX: N63.13 Unspecified lump in the right breast, lower outer quadrant (principal)
CPT/HCPCS: 76642

== ENCOUNTER 2020-07-05 13:01 | Outpatient (CLI) | payer MEDICARE ==
--- NOTE | 2020-07-08 16:19 | Ultrasound Report ---
LIMITED ULTRASOUND OF RIGHT BREAST: 07/05/2020 CLINICAL: Patient returns for a 6 month follow up of the right breast. Comparison is made to exams dated: 12/04/2019 ultrasound, 07/20/2019 ultrasound, and 05/15/[address] [facility]. Color flow ultrasound of the right breast 8 o'clock region was performed. Young scale images of the r eal-time examination were reviewed. There are two adjacent oval simple cysts in the right breast at 8 o'clock middle depth 5 cm from the nipple measuring 4 mm and 3mm respectively. These simple cysts is anechoic with posterior acoustic e nhancement. These abnormalities are decreased in size. Color flow imaging demonstrates that there i s no vascularity present. IMPRESSION: BENIGN There is no sonographic evidence of malignancy. The wider than tall simple cysts in the right breast are benign. Return to annual mammogram screening schedule is recommended. Findings and recommendations were conveyed to the patient during today's evaluation. This exam was interpreted at Station ID: [id number]. Electronically Signed By: Antonio Alicia M.D. aty/:07/05/2020 16:42:06 Ultrasound BI-RADS: 2 Benign BI-RADS CATEGORY: (2) - 2 RECOMMENDATION: (ANNUAL) - Recommend routine annual screening mammography. [id number] return to screening LATERALITY: (B)
--- NOTE | 2020-07-08 16:19 | Mammography Report ---
BILATERAL DIGITAL DIAGNOSTIC MAMMOGRAM: 07/05/2020 CLINICAL: 6 month follow-up of cysts. Comparison is made to exams dated: 07/20/2019 mammogram, 02/25/2016 mammogram, 01/20/2016 mammogram, mammogram, 11/28/2010 mammogram, and 05/22/2010 mammogram - [facility]. Ther e are scattered fibroglandular elements in both breasts. There are benign calcifications in both breasts that are not significantly changed. There is a biops y site marker on the right breast. No significant masses, calcifications, or other findings are seen in either breast. IMPRESSION: INCOMPLETE: NEEDS ADDITIONAL IMAGING EVALUATION Stable mammographic evaluation of the bilateral breast. Further evaluation with right breast ultrasou nd is scheduled immediately after this examination to follow up previously described right breast cys ts. This exam was interpreted at Station ID: [id number]. NOTE: For mammograms, a report in lay terms will be sent to the patient. Approximately 15% of breast malignancies will not be visualized mammographically. In the management of a palpable breast mass, a negative mammogram must not discourage biopsy of a clinically suspicious lesion. Electronically Signed By: Antonio Alicia M.D. aty/:07/05/2020 15:44:30 ACR BI-RADS Category 0: Incomplete 3340F PARENCHYMAL PATTERN: (A) - The breast(s) demonstrate(s) scattered fibroglandular densities. BI-RADS CATEGORY: (0) - 0 Ultrasound [id number] Immediate follow-up LATERALITY: (R)
== END 2020-07-05 13:02 | disposition home or self-care (01) ==
LOC: DI 13:01
PROVIDERS: ATTEND Nurse Practitioner Family
DX: N60.01 Solitary cyst of right breast (principal)
CPT/HCPCS: 76642; 77066

== ENCOUNTER 2021-09-18 20:01 | Emergency (ER) | payer MEDICARE ==
[2021-09-18 20:45] LABS: BASOPHILS % (AUTO) 0.7 %; EOSINOPHILS % (AUTO) 17.2 %; HCT - HEMATOCRIT 37.7 % (37.0-47.0); HGB - HEMOGLOBIN 12.5 g/dL (12.0-16.0); LYMPHOCYTES % (AUTO) 18.5 %; MEAN CORPUSCULAR HEMOGLOBIN 31.8 pg (27.0-31.0); MEAN CORPUSCULAR HGB CONC 33.2 g/dL (32.0-36.0); MEAN CORPUSCULAR VOLUME 95.9 fL (81.0-99.0); MEAN PLATELET VOLUME 9.4 fL (7.9-10.8); MONOCYTES % (AUTO) 9.4 %; NEUTROPHILS % (AUTO) 53.8 %; PLT - PLATELET COUNT 324 10^3/uL (130-450); RED BLOOD COUNT 3.93 10^6/uL (4.20-5.40); RED CELL DISTRIBUTION WIDTH 13.1 % (12.0-15.0); WHITE BLOOD COUNT 12.5 x10^3/uL (4.8-10.8)
[2021-09-18 20:47] LABS: VBG BASE EXCESS 0.9 mmol/L (-2 - +2); VBG HCO3 26.2 mmol/L (23-28); VBG OXYGEN SATURATION 89.4 % (60-80); VBG PCO2 44.6 mmHg (41-51); VBG PH 7.387 (7.31-7.41); VBG PO2 57.7 mmHg (25-47); VBG TOTAL CO2 27.6 mmol/L (24-29)
[2021-09-18 20:51] LABS: ABNORMAL LYMPHS % (MANUAL) 0 %; BAND NEUTROPHILS % (MANUAL) 0 %
[2021-09-18 20:53] LABS: CALCIUM 9.3 mg/dL (8.5-10.3); CREATININE 0.9 mg/dL (0.4-1.0)
--- NOTE | 2021-09-18 21:02 | ED Physician Documentation ---
PD HPI CHEST PAIN - Stated complaint Stated Complaint: BRIDGETTE/SOA/WEAK/FATIGUE - Chief complaint Chief Complaint: Resp - History obtained from History obtained from: Patient - Additional information Additional information: 71yF with pmh pulm fibrosis on 3L home o2 p/w 1.5 weeks of acute on chronic SOA, decreased energy, malaise, and worsening nasal congestion and acute on chronic cough productive of clear sputum. denies sick contacts, recent travel. Patient has been using increased o2 for comfort but states it has not dropped and has stayed in a stable range. she has had 3 pfizer covid-19 vaccines. denies hemoptyis, leg swelling, n/v, cp, back pain. Patient had a phone appointment with her front desk worker Dr. Chung's [employer] 2-3 days ago and was prescribed levalbuterol nebulizers tid prn. patient has only been using bid, in addition to her rescue pump inhaler at nighttime, but does endorse improvement in SOA after using inhaler. Review of Systems Ten Systems: 10 systems reviewed and negative Constitutional: denies: Fever, Chills Cardiac: denies: Chest pain / pressure Respiratory: reports: Dyspnea, Cough GI: denies: Nausea, Vomiting PD PAST MEDICAL HISTORY - Past Medical History Cardiovascular: None Respiratory: COPD, Shortness of breath, CPAP use, Other Neuro: None Endocrine/Autoimmune: HyPOthyroidism GI: None [employer]NAG[employer]ING: None : None HEENT: None Psych: Depression Musculoskeletal: None Derm: Psoriasis - Past Surgical History Past Surgical History: Yes Ortho: Other HEENT: Cataracts - Present Medications Home Medications: Ambulatory Orders Medication Instructions Recorded Confirmed Citalopram [CeleXA] 40 mg PO DAILY 09/25/13 11/04/17 Levothyroxine [Synthroid] 75 mcg PO DAILY 09/25/13 11/04/17 Apremilast [Otezla] 30 mg PO DAILY 11/02/17 11/04/17 Doxycycline Hyclate 100 mg PO BID #20 capsule 07/06/19 dexAMETHasone [Decadron] 4 mg PO BIDWM #10 tablet 07/06/19 Nitrofurantoin Monohyd/M-Cryst 100 mg PO BID #9 capsule 07/19/19 [Macrobid 100 mg Capsule] - Allergies Allergies/Adverse Reactions: Allergies Allergy/AdvReac Type Severity Reaction Status Date / Time prednisone AdvReac Anxiety Verified 09/18/21 20:16 - Social History Does the pt smoke?: No Smoking Status: Never smoker Does the pt drink ETOH?: Yes Does the pt have substance abuse?: No - Immunizations Immunizations are current?: Yes - POLST Patient has POLST: No PD ED PE NORMAL - Vitals Vital signs reviewed: Yes - General General: Alert and oriented X 3, No acute distress, Well developed/nourished - HEENT HEENT: Atraumatic, PERRL, EOMI - Neck Neck: Supple, no meningeal sign - Cardiac Cardiac: RRR - Respiratory Respiratory: Other (coarse BL breath sounds. scant wheezing bilaterally) - Abdomen Abdomen: Non tender, Non distended - Derm Derm: Normal color, Warm and dry - Extremities Extremities: No deformity - Neuro Neuro: Alert and oriented X 3 - Psych Psych: Normal mood, Normal affect Results - Vitals Vitals: Vital Signs - 24 hr 09/18/21 09/18/21 20:11 22:00 Temperature 36.2 C L Heart Rate 87 76 Respiratory 24 22 Rate Blood Pressure 162/85 H 155/81 H O2 Saturation 98 96 Oxygen O2 Source Nasal cannula Oxygen Flow Rate 4 - EKG (time done) 2041 Rate: Rate (enter#) (82) Rhythm: NSR [place]: Normal Intervals: Other (KS 78) QRS: Normal Ischemia: Normal ST segments - Labs Labs: Laboratory Tests 09/18/21 09/18/21 09/18/21 20:39 20:39 20:39 WBC 12.5 H RBC 3.93 L Hgb 12.5 Hct 37.7 MCV 95.9 MCH 31.8 H MCHC 33.2 RDW 13.1 Plt Count 324 MPV 9.4 Neut # (Auto) Not Reportable Lymph # (Auto) Not Reportable Erath # (Auto) Not Reportable Eos # (Auto) Not Reportable Baso # (Auto) Not Reportable Absolute Nucleated RBC Not Reportable Total Counted 100 Band Neuts % (Manual) 0 Abnorm Lymph % (Manual) 0 Nucleated RBC % Not Reportable Neutrophils # (Manual) 6.3 Lymphocytes # (Manual) 3.1 Monocytes # (Manual) 0.5 Eosinophils # (Manual) 2.5 H Basophils # (Manual) 0.1 Differential Comment MANUAL DIFFERENTIAL WBC Morphology NORMAL APPEARANCE Platelet Estimate NORMAL (130-450,000) Platelet Morphology NORMAL APPEARANCE RBC Morph Micro Appear NORMAL APPEARANCE VBG pH 7.387 VBG pCO2 44.6 VBG pO2 57.7 H VBG HCO3 26.2 VBG Total CO2 27.6 VBG O2 Saturation 89.4 H VBG Base Excess 0.9 Sodium 130 L Potassium 4.0 Chloride 92 L Carbon Dioxide 28 Anion Gap 10.0 BUN 10 Creatinine 0.9 Estimated GFR (MDRD) 61 L Glucose 91 Calcium 9.3 Nasal Adenovirus (PCR) Nasal B. parapertussis DNA (PCR) Nasal Coronavir 229E PCR Nasal Coronavir HKU1 PCR Nasal Coronavir NL63 PCR Nasal Coronavir OC43 PCR Nasal Enterovir/Rhinovir PCR Nasal Influenza B PCR Nasal Influenza A PCR Nasal Parainfluen 1 PCR Nasal Parainfluen 2 PCR Nasal Parainfluen 3 PCR Nasal Parainfluen 4 PCR Nasal RSV (PCR) Nasal B.pertussis DNA PCR Nasal C.pneumoniae (PCR) [place] Human Metapneumo PCR Nasal M.pneumoniae (PCR) Nasal SARS-CoV-2 (PCR) 09/18/21 20:59 WBC RBC Hgb Hct MCV MCH MCHC RDW Plt Count MPV Neut # (Auto) Lymph # (Auto) Erath # (Auto) Eos # (Auto) Baso # (Auto) Absolute Nucleated RBC Total Counted Band Neuts % (Manual) Abnorm Lymph % (Manual) Nucleated RBC % Neutrophils # (Manual) Lymphocytes # (Manual) Monocytes # (Manual) Eosinophils # (Manual) Basophils # (Manual) Differential Comment WBC Morphology Platelet Estimate Platelet Morphology RBC Morph Micro Appear VBG pH VBG pCO2 VBG pO2 VBG HCO3 VBG Total CO2 VBG O2 Saturation VBG Base Excess Sodium Potassium Chloride Carbon Dioxide Anion Gap BUN Creatinine Estimated GFR (MDRD) Glucose Calcium Nasal Adenovirus (PCR) NOT DETECTED Nasal B. parapertussis DNA (PCR) NOT DETECTED Nasal Coronavir 229E PCR NOT DETECTED Nasal Coronavir HKU1 PCR NOT DETECTED Nasal Coronavir NL63 PCR NOT DETECTED Nasal Coronavir OC43 PCR NOT DETECTED Nasal Enterovir/Rhinovir PCR NOT DETECTED Nasal Influenza B PCR NOT DETECTED Nasal Influenza A PCR NOT DETECTED Nasal Parainfluen 1 PCR NOT DETECTED Nasal Parainfluen 2 PCR NOT DETECTED Nasal Parainfluen 3 PCR NOT DETECTED Nasal Parainfluen 4 PCR NOT DETECTED Nasal RSV (PCR) NOT DETECTED Nasal B.pertussis DNA PCR NOT DETECTED Nasal C.pneumoniae (PCR) NOT DETECTED [place] Human Metapneumo PCR NOT DETECTED Nasal M.pneumoniae (PCR) NOT DETECTED Nasal SARS-CoV-2 (PCR) NOT DETECTED PD MEDICAL DECISION MAKING - ED course ED course: 71yF with pmh idiopathic pulmonary fibrosis p/w worsening congestion and cough over the past week and a half. She is requesting a covid test today. VBG WNL and patient is well appearing on exam, satting 98% on 4L nasal cannula. Does have some mild leukocytosis, possible viral etiology. Plan to dc home with pulmonology follow up pending RVP results. RVP negative. d/w patient and with her RN friend Micki over the phone regarding her results. They plan to f/u with pulmonology over the phone tomorrow and also have palliative care appointment upcoming with Carmen Jenkins. patient declined prednisone, stating it made her anxious in the past but is agreeable to try decadron treatment. Return precautions discussed. Departure - Departure Disposition: 01 Home, Self Care Clinical Impression: Shortness of breath, Cough, Congestion of upper airway, Pulmonary fibrosis Condition: Good Instructions: Pulmonary Fibrosis Comments: You were seen in the emergency department for evaluation of cough and shortness of breath. Your labs showed mildly increased white blood cell count, a nonspecific sign. You have normal oxygen levels. We did give a one time dose of 10mg IV decadron that may help cool down inflammation in the airways related to your pulmonary fibrosis. Please follow up with your front desk worker tomorrow and with Carmen Jenkins for your upcoming palliative care appointment. Please consider using nebulized humidified air twice daily as an adjunct treatment to your levalbuterol treatments. Return to the ED if you have any new or worsening symptoms or other concerns.
[2021-09-18 21:07] LABS: BASOPHILS # (MANUAL) 0.1 10^3/uL (0-0.1); BASOPHILS % (MANUAL) 1 %; EOSINOPHILS # (MANUAL) 2.5 10^3/uL (0-0.7); LYMPHOCYTES # (MANUAL) 3.1 10^3/uL (1.5-3.5); LYMPHOCYTES % (MANUAL) 25 %; MONOCYTES # (MANUAL) 0.5 10^3/uL (0.0-1.0); NEUTROPHILS # (MANUAL) 6.3 10^3/uL (1.5-6.6)
[2021-09-18 21:08] LABS: PLATELET ESTIMATE, MANUAL NORMAL (130-450,000) (NORMAL); PLATELET MORPHOLOGY NORMAL APPEARANCE (NORMAL); RBC MORPHOLOGY (MULTIPLE) NORMAL APPEARANCE (NORMAL); WBC MORPHOLOGY (MULTIPLE) NORMAL APPEARANCE (NORMAL)
[2021-09-18 21:09] LABS: DIFFERENTIAL COMMENT MANUAL DIFFERENTIAL
--- NOTE | 2021-09-18 21:09 | XRAY Report ---
PROCEDURE: Chest 1 View X-Ray INDICATIONS: Cough, pulmonary fibrosis TECHNIQUE: One view of the chest was acquired. COMPARISON: 10/13/2019 FINDINGS: Surgical changes and devices: None. Lungs and pleura: Increase interstitial markings in the central/perihilar lungs as well as in the lef t lung base and right apex. Findings have progressed from the prior study. Findings are consistent wi th pulmonary massive fibrosis. There may be acute superimposed edema or infectious process. Mediastinum: Mediastinal contours appear normal. Heart size is normal. Bones and chest wall: No suspicious bony lesions. Overlying soft tissues appear unremarkable. IMPRESSION: Worsening interstitial and groundglass airspace opacities when compared with the prior study. Finding s are consistent with pulmonary massive fibrosis and raise concern for acute superimposed infectious process or pulmonary edema. Reviewed by: Cyrus Franz MD on 09/18/2021 9:08 PM PST Approved by: Cyrus Franz MD on 09/18/2021 9:08 PM PST Station ID: [id number]
[2021-09-18 21:56] LABS: CORONAVIRUS 229E-RESP PCR NOT DETECTED; CORONAVIRUS HKU1-RESP PCR NOT DETECTED; CORONAVIRUS NL63-RESP PCR NOT DETECTED; CORONAVIRUS OC43-RESP PCR NOT DETECTED; HUMAN METAPNEUMOVIRUS NOT DETECTED; INFLUENZA A- RESP PCR PANEL NOT DETECTED; RHINOVIRUS/ENTEROVIRUS NOT DETECTED; SARS-CoV-2 -RESP PCR PANEL NOT DETECTED
[2021-09-18 21:57] LABS: B. PARAPERTUSSIS- RESP PCR PAN NOT DETECTED; B. PERTUSSIS- RESP PCR PANEL NOT DETECTED; C. PNEUMONIAE- RESP PCR PANEL NOT DETECTED; INFLUENZA B - RESP PCR PANEL NOT DETECTED; M. PNEUMONIAE- RESP PCR PANEL NOT DETECTED; PARAINFLUENZA VIRUS 1 NOT DETECTED; PARAINFLUENZA VIRUS 2 NOT DETECTED; PARAINFLUENZA VIRUS 3 NOT DETECTED; PARAINFLUENZA VIRUS 4 NOT DETECTED; RSV- RESP PCR PANEL NOT DETECTED
[2021-09-18] MEDS ORDERED: DEXAMETHASONE 10 MG/ML VIAL IVP STA (22:50)
[2021-09-18] MEDS ORDERED: DEXAMETHASONE 10 MG/ML VIAL PO STA (22:57)
[2021-09-18] MEDS ORDERED: CHERRY SYRUP 10 ML UDC PO ONE (22:57)
[2021-09-19 00:03] VITALS: BP 138/86
== END 2021-09-19 00:04 | disposition home or self-care (01) ==
LOC: ED 20:01
DX: J84.10 Pulmonary fibrosis, unspecified (principal); Z20.822 Contact with and (suspected) exposure to COVID-19
CPT/HCPCS: 36415; 71045; 80048; 82803; 85025; 87631; 93005; 99284; A9270; 0202U

== ENCOUNTER 2021-09-24 14:00 | Outpatient (CLI) | payer MEDICARE ==
--- NOTE | 2021-09-24 16:50 | CONSULTATION NOTE ---
Palliative Care Consultation - Referral Referring Provider: Rachel LEBLANC Time of Visit: [id number] Referral setting: Home Referral Reason: Pulmonary Fibrosis/Chronic Respiratory Failure/Anxiety - Information Sources Records reviewed: Previous records reviewed History/Review of Systems obtained from: Patient, Family (brother at visit; EMILEE on phone) Exam limitations: Clinical condition (mild STM deficits) - History of Present Illness Brief History of Present Illness: This is a 71-year-old woman who has known advanced idiopathic pulmonary fibrosis, on continuous oxygen therapy who continues to have worsening dyspnea, functional decline, and more limitations related to this. In the context of that she has severe anxiety, as she does have coughing spasms, and finds it difficulty to catch her breath. Most recently she had an exacerbation and was in the emergency room on 09/18/2021. She had been screened out for any respiratory illness, including Covid, flu, pertussis, had received 1 dose of oral Decadron of 10 mg according to the ED notes. She did fine the next 24 hours significantly better, decreased respiratory effort, decreased wheezing, and felt fairly well with this. She reports she still does not feel like she has returned to her previous baseline though this has been declining overall. She does note more limitations particularly in the last 3 months, and has increased difficulty with coughing and coughing spasms, she has recently been initiated on levalbuterol nebulizers. She does have chronic respiratory failure, does desat easily with any activity or coughing spasms, and her biggest fear is she is going to strangle to . Her current understanding of her illness is that is progressive, they are looking at possibly initiating Ofev in the future, she is currently off her Otezla in preparation for this. She has not had conversations regarding her overall prognosis, know what to expect in the near future. Though she does relate that she has had continued decline, and is concerned, she would like to ultimately be able to be at home for her end-of-life event. She relates concern regarding liver enzymes and side effects of diarrhea as well. She does struggle with urinary incontinence, decreased activity tolerance, fatigue, and escalating anxiety related to her condition. She does get relief with lorazepam, though this is only short-term. She is hoping for a tool box to be able to work with particular around her cough and coughing spasms. Medical/Surgical History - Past Medical History Cardiovascular: reports: None Respiratory: reports: COPD, Shortness of breath, CPAP use, Other (pulmonary fibrosis) Neuro: None Neuro: reports: Peripheral neuropathy Endocrine/Autoimmune: reports: HyPOthyroidism GI: reports: Chronic diarrhea (attributes to side effect of medication; improving off Orenza) CLINICAL COUNSELOR: reports: None : reports: Incontinence HEENT: reports: None Psych: reports: Depression, Anxiety, Panic attacks (with breathing/coughing spasms) Musculoskeletal: reports: Osteoarthritis, Fatigue Derm: reports: Psoriasis MRSA Hx?: No - Past Surgical History Ortho: reports: Other (hand surgery) HEENT: reports: Cataracts Social History - Living Situation Living arrangement: At home Living Situation: Alone Support System: Patient's spouse at 46 of complications of a heart surgery, she is currently but still in contact with her ex- who is quite supportive. She lives on a left in a beautiful home, she is supported by her brother and [id number]. She does help paid assistance every other week, is having more difficulty with ADLs and needing ongoing care needs. She does sleep upstairs and needs to go up a spiral staircase which is complicated in the context of her current situation. 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 Family History - Family History Family History: Mother: ( at age 84), COPD/Emphysema (at age 84), Father: , CVA/TIA, Diabetes, Type 2, Sister: Alive and Well, Brother: Alive and Well Medications/Allergies - Medications Home Medications: Ambulatory Orders Medication Instructions Recorded Confirmed Citalopram [CeleXA] 40 mg PO DAILY 09/25/13 09/24/21 Levothyroxine [Synthroid] 75 mcg PO DAILY 09/25/13 09/24/21 LORazepam [Ativan] 0.25 - 0.5 mg PO QID PRN 09/24/21 09/24/21 Levalbuterol Tartrate 1 - 2 puffs INH Q4HR PRN 09/24/21 09/24/21 [Levalbuterol Tartrate Hfa] Levalbuterol [Xopenex] 1 amp NEB TID 09/24/21 09/24/21 Loperamide [Imodium] 2 mg PO Q4HR PRN 09/24/21 09/24/21 Omeprazole Magnesium 20 mg PO DAILY 09/24/21 09/24/21 Zolpidem [Ambien] 5 mg PO QPM 09/24/21 09/24/21 dexAMETHasone [Decadron] 4 mg PO DAILY MDD 5 days 09/24/21 09/24/21 Benzonatate [Tessalon] 100 mg PO TID PRN 09/26/21 09/26/21 Hydrocodone Bit/Homatrop Me-Br 5 ml PO Q6HR PRN 09/26/21 09/26/21 [Hycodan 5 mg-1.5 mg/5 ml Soln] - Allergies Allergies/Adverse Reactions: Allergies Allergy/AdvReac Type Severity Reaction Status Date / Time prednisone AdvReac Anxiety Verified 09/18/21 20:16 Review of Systems - Constitutional Constitutional: reports: Fatigue, Weakness, Weight gain. denies: Fever, Chills - Ears, Nose & Throat Ears, Nose & Throat: reports: Hoarseness, Dry mouth - Cardiovascular Cardiovascular: reports: Palpitations, Lightheadedness, Exertional dyspnea, Decr. exercise tolerance - Respiratory Respiratory: reports: Cough (severe spasms; takes breath away), Sputum production (occasional; more upper respiratory secretions; clear/occ yellow with brown flecks), SOB at rest, SOB with exertion, Other (uses CPAP). denies: Hemoptysis - Gastrointestinal Gastrointestinal: reports: Diarrhea, Nausea, Early satiety - Genitourinary Genitourinary: reports: Incontinence (worse with coughing spasms) - Musculoskeletal Musculoskeletal: reports: Back pain, Stiffness, Muscle weakness - Integumentary Integumentary: reports: Rash (psorasis on buttocks), Pruritis, Dryness - Neurological Neurological: reports: General weakness, Numbness, Memory problems - Psychiatric Psychiatric: reports: Depression, Anxiety - Endocrine Endocrine: reports: Hypothyroidism, Intolerance to cold - Hematologic/Lymphatic Hematologic/Lymph: reports: Bruising - All Other Systems All Other Systems: reports: Reviewed and negative Physical Exam - Vital Signs Temperature: 97.0 C Pulse Rate: 79 Respiratory Rate: 18 O2 Saturation: 94 (3 liters) Blood Pressure: 142/78 - Physical Exam General Appearance: positive: No acute distress, Alert, Anxious Eyes Bilateral: positive: Normal inspection ENT: positive: No signs of dehydration Neck: positive: Trachea midline Cardiovascular: positive: Regular rate & rhythm Respiratory: positive: Diminished throughout, Wheezes, Other (fine exp dry "velcro" crackles). negative: No respiratory distress (respiratory effort with any movement; coughing) Abdomen: positive: Soft, Obese Skin: positive: Pallor, Dryness Extremities: positive: No pedal edema Neurologic/Psychiatric: positive: Oriented x3, Mood/affect nml, Flat affect Palliative Care - POLST Patient has POLST: Yes POLST Status: DNR, Selective Treatment (would like to redo; though reflective of current goals) Pain: Location (left neck and shoulder;), Severity (10) Tiredness/Fatigue: Mild (1-3) Drowsiness/Sedation: None Nausea: None Anorexia: None Dyspnea: Moderate (4-6) Depression: None (feels well controlled on current citalopram) Anxiety: Moderate (4-6) Feelings of wellbeing/Perceived Quality of Life: Fair, Worsening Sleep: Variable sleep pattern Constipation: No Performance Status: Patient does describe worsening activity tolerance, more limited ability for ambulation both related to her generalized weakness as well as her dyspnea. She does spend most of her time on the couch, is well set up with her TV, her meds, and a beautiful view. At this point in time ADLs are becoming more difficult, she does have a bedroom upstairs and minimizes time up and down the spiral staircase. She has gotten some more help with household tasks, may need more assistance in the near future. - Palliative Care Discussion: Meeting with patient, her brother, and [id number] by phone to establish goals of care. Patient does have a POLST with DN AR/DNI and selective treatments, she is somewhat ambivalent about going to the hospital at this point in time, has not been hospitalized previously and most recently went to the ED for evaluation. Her biggest fear is strangulation and having a worry some end-of-life event, did introduce the role of hospice in the context of end-of-life and management of shortness of breath with both morphine and sedation with the goal to use transitioning. She does not know where she is at in her trajectory as far as her prognosis, but does perceive herself as deteriorating. She does live alone, which poses multiple challenges, family is interested in having medications available to help with symptom management and avoid ED visits. Patient is interested in maximizing her current quality of life, and enjoying the time she has left. She is unclear if she has a DURABLE POWER OF COMB TENDER for healthcare, I did leave her the simple form. She is trying to get her end-of-life financial and legal issues resolved, particularly in the context of her visit last week to the ED as she did feel like "this was it". She does percent is quite compromised, and describing her journey does appear to have had significant climbing over the last several weeks, she does have significant anxiety which appears to be her most impactful quality of life issue at this point. In agreement I would reach out to her tourist escort, she has had some recent PFTs, and look at navigating for the future how best what to expect and addressing current symptom management needs Results - Lab Results Lab results reviewed: Yes Impression and Recommendations - Palliative Care Impression: This is a 71-year-old woman with idiopathic pulmonary fibrosis, with recent acute exacerbation addressed in ED last week. Patient continues to struggle with shortness of breath, respiratory failure, worsening anxiety, and insomnia. Patient does demonstrate and described functional decline, having increased trouble with short-term memory issues, she does have family support but does live alone. Palliative care establishing care and rapport, addressing symptom management needs, and looking forward for anticipatory guidance. Recommendations/Counseling Done: 1. Cough. This appears multifactorial, does result in spasms, is triggered by increased activity, talking, and illicits severe anxiety response. She has been recently started on her levalbuterol nebulizers 3 times a day, does use her inhaler at bedtime if she wakes up. Though she does appear to be panicky and tight and unable to use effectively. Hopefully with more consistent use of medication will improve. She does get quite anxious, with these coughing spasms and feels like she cannot breathe. She does use plain dextromethorphan cough syrup, with some easing of irritation. Will initiate Tessalon Perles 100 mg 3 times daily as needed to see if this will assist with the irritative part of the cough. She is very anxious to have something "stronger". Will initiate Hycodan 5 mils every 6 hours for severe cough or coughing spasms. Hopefully with initiation of dexamethasone burst will find some improvement. 2. Dyspnea. Patient describes tightness, and constriction in her ability to breathe. She does desat with activity and coughing spasms. She does try to mentally slow down and reset herself. She does find lorazepam does help her relax, and tolerate her distress easier. She did receive good response from the 1 dose of dexamethasone, she has had in the past about experience with prednisone though this was at high doses for her psoriasis. I suspect at lower dose that she may tolerate. We will go ahead though and prescribe dexamethasone, she is hesitant regarding side effects of prednisone, but eager to try, will start with 2 mg, if tolerated go up to 4 mg for 5-day burst. Call to her primary care provider BENJI Golden, to collaborate and coordinate medications and care plan currently. 3. Idiopathic pulmonary fibrosis. Will follow up with tourist escort regarding long-term plan and prognosis to help navigate better her current situation. Does appear she has been on a fairly rapid decline over the last several weeks to months. Her goals are to avoid hospitalization and ED visits, she does understand she has a progressive disease. We will get PFTs, and continue to explore goals of care. 4. Advanced care planning. Patient does need review and update of her POLST, though it does reflect her current wishes. Will update with more recent form as well as define further some of the goals in the context of directing urgent/emergent care. She does not at this point have a accessible durable power of health research attorney, Micki Olson her [id number] who is a nurse, has taken on the school, but her brother who is more available needs to be added and included in the support plan. Patient's ultimate goal is to have a at home, that is peaceful and not in distress. Plan to follow-up and coordinate with tourist escort regarding patient's current status and prognosis. We will continue to coordinate and collaborate with PCP team, it is a significant difficult issue for patient to leave the home. We will continue to provide anticipatory guidance and transition to hospice when appropriate. Plan for phone call follow-up for current interventions, and home visit in 2 weeks. Prescriptions ordered Zoran Cantrell, confirmed with her [id number] Micki she will be picking up medications. 90 minutes with greater than 50% of this time in counseling regarding disease, disease trajectory, symptom management, goals of care, coordination of care with PCP, and anticipatory guidance.
== END 2021-09-24 14:01 | disposition home or self-care (01) ==
LOC: PC 14:00
PROVIDERS: ATTEND Nurse Practitioner Adult Health
DX: Z51.5 Encounter for palliative care (principal); J84.112 Idiopathic pulmonary fibrosis; J96.10 Chronic respiratory failure, unspecified whether with hypoxia or hypercapnia; Z66 Do not resuscitate
CPT/HCPCS: 99345

== ENCOUNTER 2021-10-09 12:15 | Outpatient (CLI) | payer MEDICARE ==
--- NOTE | 2021-10-09 19:18 | CONSULTATION NOTE ---
Palliative Care Follow Up - Referral Referring Provider: Rachel LEBLANC Time of Visit: [id number] Referral setting: Home Referral Reason: Idiopathic Pulmonary Fibrosis/Chronic Respiratory Failure/TANVI - Information Sources Records reviewed: Previous records reviewed, Other (spoke with Greer LEBLANC Pulmonology) History/Review of Systems obtained from: Patient Exam limitations: No limitations - History of Present Illness Update Brief HPI Update: This is a 71-year-old woman with known advanced idiopathic pulmonary fibrosis, on continuous oxygen therapy who has chronic respiratory failure. She has improved greatly since short course of dexamethasone, she received 4 mg daily x5 days, with improvement of cough, dyspnea, and coughing spasms. She has been compliant using her leave albuterol nebulizers 3 times a day, pacing her activities, she is using the Tessalon Perles intermittently, and occasional h ydrocodone half tab for cough with good results. She is feeling much more relaxed, does continue to have escalating and intermittent anxiety, which is managed currently with her lorazepam 0.5 mg 1-2 times a day. Her biggest complaint continues to be sleep issues, she is long-term been on zolpidem, 5 to 10 mg at bedtime, recently trialed doxepin to see if could get better sleep with feeling like she had more hangover. Her diarrhea is currently resolved, continues with some intermittent and continence of urine, and rash has not flared despite being off her Otezla. Meeting with patient and her brother Collins, with her [id number] Micki on phone. Patient continues to work on end-of-life planning, recognizing the seriousness of her illness, we did discuss at length her goals of care, and updated her POLST. Please see palliative care discussion. Past Medical History: COPD, shortness of breath, CPAP use, idiopathic pulmonary fibrosis for greater than 5 years, peripheral neuropathy, hypothyroidism, chronic diarrhea, incontinence, depression, anxiety, panic attacks, osteoarthritis, fatigue, psoriasis, history of hand surgery and cataracts. Social History - Living Situation Living arrangement: At home Living Situation: Alone Support System: Patient does live alone, is currently has been as well as a ex- is quite supportive. She lives in [place]. She is supported by her brother and [id number] for shopping, errands, appointments and oversight of medical care. She does get paid assistance every other week, is having more difficulty with ADLs and needing ongoing care needs. She has recently redone her house to make it more accessible as far as pacing her activities. Though she does sleep upstairs and needs to go up a spiral staircase, but is only doing this once a day. 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 Medications/Allergies - Medications Home Medications: Ambulatory Orders Medication Instructions Recorded Confirmed Citalopram [CeleXA] 40 mg PO DAILY 09/25/13 10/09/21 Levothyroxine [Synthroid] 75 mcg PO DAILY 09/25/13 10/09/21 LORazepam [Ativan] 0.25 - 0.5 mg PO QID PRN 09/24/21 10/09/21 Levalbuterol Tartrate 1 - 2 puffs INH Q4HR PRN 09/24/21 10/09/21 [Levalbuterol Tartrate Hfa] Levalbuterol [Xopenex] 1 amp NEB TID 09/24/21 10/09/21 Loperamide [Imodium] 2 mg PO Q4HR PRN 09/24/21 10/09/21 Omeprazole Magnesium 20 mg PO DAILY 09/24/21 10/09/21 Benzonatate [Tessalon] 100 mg PO TID PRN 09/26/21 10/09/21 Hydrocodone/Acetaminophen 0.5 - 1 tab PO Q4HR PRN 10/09/21 10/09/21 [Hydrocodone-Acetamin 10-325 mg] Zolpidem Tartrate [Zolpidem 6.25 mg PO QPM 10/09/21 10/09/21 Tartrate ER] - Allergies Allergies/Adverse Reactions: Allergies Allergy/AdvReac Type Severity Reaction Status Date / Time prednisone AdvReac Anxiety Verified 09/18/21 20:16 Review of Systems - Constitutional Constitutional: reports: Fatigue (remains persistent), Weakness, Weight gain - Eyes Eyes: reports: Vision loss, Corrective lenses - Ears, Nose & Throat Ears, Nose & Throat: reports: Hoarseness (improved), Dry mouth - Cardiovascular Cardiovascular: reports: Palpitations (with exertion), Lightheadedness, Exertional dyspnea, Decr. exercise tolerance - Respiratory Respiratory: reports: Cough (less than previously; managing with neb, hydrocodone a few times a week; tessolon perles a few times a day), Sputum production, SOB at rest, SOB with exertion, Other (hypoxic with activity) - Gastrointestinal Gastrointestinal: reports: Early satiety. denies: Diarrhea (improving), Nausea - Genitourinary Genitourinary: reports: Incontinence - Musculoskeletal Musculoskeletal: reports: Back pain, Stiffness, Muscle weakness - Integumentary Integumentary: reports: Rash (has not worsened; prob improved with dex), Pruritis, Dryness - Neurological Neurological: reports: General weakness, Numbness (peripheral neuropathy), Memory problems - Psychiatric Psychiatric: reports: Depression, Anxiety (feeling better with intermittent lorazepam) - Endocrine Endocrine: reports: Hypothyroidism, Intolerance to cold - All Other Systems All Other Systems: reports: Reviewed and negative Physical Exam - Vital Signs Temperature: 97.2 C Pulse Rate: 90 Respiratory Rate: 18 (24 with activity) O2 Saturation: 95 (3 liters at rest) Blood Pressure: 128/64 - Physical Exam General Appearance: positive: No acute distress, Alert. negative: Anxious (improved) Eyes Bilateral: positive: Normal inspection ENT: positive: No signs of dehydration Neck: positive: Trachea midline Cardiovascular: positive: Regular rate & rhythm Respiratory: positive: Diminished throughout, Wheezes (fine velcro exp crackles RLL) Abdomen: positive: Soft, Obese Skin: positive: Pallor, Dryness Extremities: positive: No pedal edema Neurologic/Psychiatric: positive: Oriented x3, Mood/affect nml, Weakness, Flat affect Palliative Care - POLST Patient has POLST: Yes POLST Status: DNR, Selective Treatment (updated new form done at visit) Pain: Pain unchanged, Location (neck and shoulder) Tiredness/Fatigue: Moderate (4-6) Drowsiness/Sedation: Mild (1-3) Nausea: Mild (1-3) Anorexia: Mild (1-3) Dyspnea: Moderate (4-6) Depression: Mild (1-3) Anxiety: Moderate (4-6) Feelings of wellbeing/Perceived Quality of Life: Good, Acceptable, Improved, Comment (feels limiting over all but improving) Sleep: Sleeps poorly (trialed new sleep medicine without improvement; dislikes SE; long-term zolpidem and effective) Constipation: No Performance Status: Patient continues with very limited endurance and activity tolerance related to her dyspnea. She does desat quite quickly with notable symptoms accompanying this. She has rearranged her living situation so she is able to only exert short distances, longest distances to the bathroom. She does have a shower chair for bathing, but has decreased frequency of this because of exertion. She does have help for her house. We did discuss possibly a transport chair, she does have a walker though it does cause her increased problems because of the height, they will try and find her a walker that benefits her.Recommend they call the [facility] - Palliative Care Discussion: With patient's last hospitalization to the ED, as she is feeling much more vulnerable, has been working on end-of-life planning. 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 Patient did have a POLST with DN AR/DNI and selective treatments. This is 3 years old, we did revisit it and strengthen her goals, which led to goals of care conversation. Patient at this point in time would treat reversible conditions, but does not want to be on a ventilator, would accept BiPAP or CPAP. She is familiar with this as she uses a CPAP at night. We did discuss if she were to continue to deteriorate, that she would like to transition to supportive care and have a at home. 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 Her biggest fear is "strangling to ", Again discussed that morphine and sedation can often ease discomfort with respiratory distress and would aggr essively manage her symptoms. Her hope is to transition to hospice when the time is right. When asked if she feels like she is changing dramatically, she is feeling better that she has plateaued some. But is aware that she is expected to continue to decline. I did speak with pulmonology Greer LEBLANC secondary to lack of appropriate records. She does report she has had pulmonary function test declined 2017 with FEV1 39%, down to most recently 27% when done 07/17. Unfortunately as a fairly long period of time between two, so unclear how quickly she is deteriorating, the average life expectancy from diagnosis is about 5 years, she is coming up on that. Discussed weighing benefits and burdens of using dexamethasone intermittently for comfort, feels this is okay and focus is to provide quality of life in the context of quantity life is limited. Did introduce myself as palliative care, and continue to work together to focus on patient's goals which are to maximize her quality of life. Impression and Recommendations - Palliative Care Impression: Abhilash is a 71-year-old woman with idiopathic pulmonary fibrosis, with recent acute exacerbation, now improved to dexamethasone and management of symptoms. She is much less anxious today, has had ongoing functional decline, increased trouble with short-term memory issues, does live alone, but does have family support currently feels meeting needs. Her biggest complaint continues to be her persistent insomnia, has trialed doxepin with side effects which does not like. Palliative care meeting with patient today, to further explore goals of care, updated POLST, as well as evaluate symptom management and medications prescribed. Recommendations/Counseling Done: 1. Idiopathic pulmonary fibrosis. Did follow-up with pulmonology, patient would be candidate for medication though does not necessarily prolong quantity of life nor improve quality of life. Patient has been on a fairly rapid decline over the last several weeks to months, given her goals to avoid hospitalization and ED visits, will continue to focus on symptom management. Continue to provide anticipatory guidance and partner with pulmonology. 2. Cough. This appears to be multifactorial, does result in spasms and triggered by increased activity. She has had less in frequency and in severity with, She does feel she is currently the tools to manage it. She has used the hydrocodone with good relief, but has only needed to use it a couple times this last week, does use the Tessalon Perles intermittently, and is being more proactive with her nebulizer. We will continue to monitor. 3. Anxiety. Patient with baseline anxiety, worsens with her breathlessness and hypoxia. She is managing better with intermittent use of her lorazepam, limiting it to 1-2 times a day, and is feeling better overall. 4. Insomnia. Given patient's long-term history with zolpidem, did trial doxepin without good relief. Would like to try time-released, we will go ahead and trial zolpidem 6.25 mg sustained release to follow-up on effectiveness. Prescription sent to [facility] in [place]. 5. Dyspnea. This most likely will continue to be her biggest symptom, does trigger anxiety and panic attacks. She is pacing herself, has redone her living room to decrease her distances as this is where she desats. Did have patient check O2 sats when walked to the bathroom, they had decreased to 77% and 96 pulse on 3 L, it took her about 3-1/2 minutes to recover to 92% with a pulse of 90, and after 5 minutes she was 95% with a pulse of 85. She does have ongoing challenges and finds this somewhat distressing. Though she is not symptomatic other than needing to slow down and we were talking about feeling reassured, just to continue to pace herself, and not over exert. 6. Advanced care planning. Did complete her DPOA, will put a copy of this on record at the hospital, as well as we did her POLST to reflect her current goals, and tease out further what was most important to her. We will continue to provide support, and monitor her journey, at this point time she feels like she has plateaued, but she is at high risk for rapid decline or recurrent exacerbations.Care to continue to build rapport for decision points, update to pulmonology regarding palliative care's involvement and approach as well as use of dexamethasone. We will continue to see patient every few weeks. 60 minutes with greater than 50% of this done in counseling regarding symptom management, goals of care, and anticipatory guidance. Coordination of care with pulmonary team
== END 2021-10-09 12:16 | disposition home or self-care (01) ==
LOC: PC 12:15
PROVIDERS: ATTEND Nurse Practitioner Adult Health
DX: Z51.5 Encounter for palliative care (principal); J84.10 Pulmonary fibrosis, unspecified; J96.10 Chronic respiratory failure, unspecified whether with hypoxia or hypercapnia; R05.9 Cough, unspecified; F41.9 Anxiety disorder, unspecified; G47.00 Insomnia, unspecified; Z99.81 Dependence on supplemental oxygen; Z66 Do not resuscitate
CPT/HCPCS: 99350

== ENCOUNTER 2021-11-06 14:13 | Outpatient (CLI) | payer MEDICARE ==
[2021-11-06 20:14] LABS: BASOPHILS # (AUTO) 0.1 10^3/uL (0.0-0.1); BASOPHILS % (AUTO) 0.5 %; EOSINOPHILS # (AUTO) 1.1 10^3/uL (0.0-0.7); EOSINOPHILS % (AUTO) 9.2 %; HCT - HEMATOCRIT 35.4 % (37.0-47.0); HGB - HEMOGLOBIN 11.6 g/dL (12.0-16.0); LYMPHOCYTES # (AUTO) 1.9 10^3/uL (1.5-3.5); LYMPHOCYTES % (AUTO) 16.6 %; MEAN CORPUSCULAR HEMOGLOBIN 31.8 pg (27.0-31.0); MEAN CORPUSCULAR HGB CONC 32.8 g/dL (32.0-36.0); MEAN PLATELET VOLUME 10.2 fL (7.9-10.8); MONOCYTES # (AUTO) 1.2 10^3/uL (0.0-1.0); NEUTROPHILS # (AUTO) 7.2 10^3/uL (1.5-6.6); PLT - PLATELET COUNT 329 10^3/uL (130-450); RED BLOOD COUNT 3.65 10^6/uL (4.20-5.40); RED CELL DISTRIBUTION WIDTH 13.3 % (12.0-15.0); WHITE BLOOD COUNT 11.5 x10^3/uL (4.8-10.8)
[2021-11-06 20:25] LABS: SLIDE REVIEW? Indicated
[2021-11-06 20:28] LABS: ALBUMIN 3.7 g/dL (3.2-5.5); BILIRUBIN,DIRECT 0.1 mg/dL (0.1-0.5); BILIRUBIN,TOTAL 0.7 mg/dL (0.2-1.0); CALCIUM 9.1 mg/dL (8.5-10.3); CREATININE 0.9 mg/dL (0.4-1.0); POTASSIUM 4.1 mmol/L (3.5-5.0); TOTAL PROTEIN 7.4 g/dL (6.7-8.2)
[2021-11-06 21:00] LABS: DIFFERENTIAL COMMENT MANUAL=AUTO DIFF; PLATELET ESTIMATE, MANUAL NORMAL (130-450,000) (NORMAL); PLATELET MORPHOLOGY NORMAL APPEARANCE (NORMAL); RBC MORPHOLOGY (MULTIPLE) NORMAL APPEARANCE (NORMAL)
== END 2021-11-06 14:14 | disposition home or self-care (01) ==
LOC: LAB.S 14:13
PROVIDERS: ATTEND Nurse Practitioner Adult Health
DX: Z79.899 Other long term (current) drug therapy (principal)
CPT/HCPCS: 36415; 80048; 80076; 85025

== ENCOUNTER 2021-11-12 11:30 | Outpatient (CLI) | payer MEDICARE ==
--- NOTE | 2021-11-12 13:08 | CONSULTATION NOTE ---
Palliative Care Follow Up - Referral Referring Provider: Rachel LEBLANC Time of Visit: 2756-6869 Referral setting: Home Referral Reason: Chronic Respiratory Failure/Pulmonary Fibrosis/COPD - Information Sources History/Review of Systems obtained from: Patient, Family (EMILEE Sweet and brother Collins joined end of visit) Exam limitations: No limitations - History of Present Illness Update Brief HPI Update: This is a 71-year-old woman with known advanced idiopathic pulmonary fibrosis, chronic respiratory failure, on continuous oxygen therapy, and advanced COPD. She continues with struggling with high symptom burden of cough, severe dyspnea with any activity, chronic osteoarthritic pain, and insomnia. She does live alone, but has support from her [id number] and brother. She had her labs drawn last week which were within normal limits. She is to start her oh pill of, is concerned regarding her experience with Otezla, worried about impending diarrhea. She continues to weigh benefits and burdens of starting, she had been recommended to start several years ago, and had declined. She had increased activity this weekend, and has triggered worsening breathlessness and cough. She does have have a two-story home, and very narrow stairways trying to get up and down. She was unable to do her nebulizer and use inhaler, we discussed adding a second nebulizer so she could do her levalbuterol first thing in the morning, which does provide her relief.She does find the Tessalon Perles helpful, using hydrocodone half to 1 tab 1-2 times a day both for cough and for worsening joint pain off her Otezla. She continues with severe dyspnea with any activity or conversation, talking also triggers coughing spasms. She continues to struggle with anxiety and her worsening quality of life. On examination, she does have frequent coughing spasms, and expiratory wheezes throughout. Past Medical History: COPD, CPAP use, idiopathic pulmonary fibrosis for greater than 5 years, peripheral neuropathy, hypothyroidism, chronic diarrhea, incontinence, depression, anxiety, panic attacks, osteoarthritis, fatigue, psoriasis, history of hand surgery and cataracts Social History - Living Situation Living arrangement: At home Living Situation: Alone Support System: Patient does live alone, her brother lives up the road as well as [id number] easily accessible. She is currently but remains friends with her ex- who is quite supportive. 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 She does have some paid assistance every other week. Medications/Allergies - Medications Home Medications: Ambulatory Orders Medication Instructions Recorded Confirmed Citalopram [CeleXA] 40 mg PO DAILY 09/25/13 11/14/21 Levothyroxine [Synthroid] 75 mcg PO DAILY 09/25/13 11/14/21 LORazepam [Ativan] 0.25 - 0.5 mg PO QID PRN 09/24/21 11/14/21 Levalbuterol Tartrate 1 - 2 puffs INH Q4HR PRN 09/24/21 11/14/21 [Levalbuterol Tartrate Hfa] Levalbuterol [Xopenex] 1 amp NEB TID MDD q4 09/24/21 11/14/21 Loperamide [Imodium] 2 mg PO Q4HR PRN 09/24/21 11/14/21 Omeprazole Magnesium 20 mg PO DAILY 09/24/21 11/14/21 Benzonatate [Tessalon] 100 mg PO TID PRN 09/26/21 11/14/21 Hydrocodone/Acetaminophen 0.5 - 1 tab PO Q4HR PRN 10/09/21 11/14/21 [Hydrocodone-Acetamin 10-325 mg] Zolpidem Tartrate [Zolpidem 12.5 mg PO QPM 10/09/21 11/14/21 Tartrate ER] Nintedanib Esylate [Ofev] 150 mg PO BID 11/14/21 11/14/21 Ondansetron [Zuplenz] 4 mg PO Q6HR PRN 11/14/21 11/14/21 - Allergies Allergies/Adverse Reactions: Allergies Allergy/AdvReac Type Severity Reaction Status Date / Time prednisone AdvReac Anxiety Verified 09/18/21 20:16 Review of Systems - Constitutional Constitutional: reports: Fatigue (remains persistent), Weakness, Weight gain - Eyes Eyes: reports: Vision loss, Corrective lenses - Ears, Nose & Throat Ears, Nose & Throat: reports: Hoarseness (improved), Dry mouth - Cardiovascular Cardiovascular: reports: Palpitations (with exertion), Lightheadedness, Exertional dyspnea, Decr. exercise tolerance - Respiratory Respiratory: reports: Cough (less than previously; managing with neb, hydrocodone a few times a week; tessolon perles a few times a day; worse today after busy weekend), Sputum production, SOB at rest, SOB with exertion - Gastrointestinal Gastrointestinal: reports: Early satiety. denies: Diarrhea (improving), Nausea - Genitourinary Genitourinary: reports: Incontinence - Musculoskeletal Musculoskeletal: reports: Back pain, Stiffness, Muscle weakness - Integumentary Integumentary: reports: Rash (has not worsened), Pruritis, Dryness - Neurological Neurological: reports: General weakness, Numbness (peripheral neuropathy), Memory problems - Psychiatric Psychiatric: reports: Depression, Anxiety (feeling better with intermittent lorazepam) - Endocrine Endocrine: reports: Hypothyroidism, Intolerance to cold - Hematologic/Lymphatic Hematologic/Lymph: reports: Bruising - All Other Systems All Other Systems: reports: Reviewed and negative Physical Exam - Vital Signs Temperature: 97.2 C Pulse Rate: 79 Respiratory Rate: 18 (rest 24 with activity) O2 Saturation: 96 (3 liters at rest) Blood Pressure: 132/72 - Physical Exam General Appearance: positive: No acute distress, Alert. negative: Anxious (improved) Eyes Bilateral: positive: Normal inspection ENT: positive: No signs of dehydration Neck: positive: Trachea midline Cardiovascular: positive: Regular rate & rhythm Respiratory: positive: Diminished throughout, Wheezes (scattered exp and insp wheezes; time for neb tx), Other (cough high pitched/tight). negative: No respiratory distress (RR increased with conversation/cough) Abdomen: positive: Soft, Obese Skin: positive: Pallor, Dryness Extremities: positive: No pedal edema Neurologic/Psychiatric: positive: Oriented x3, Mood/affect nml, Weakness, Flat affect Palliative Care - POLST Patient has POLST: Yes POLST Status: DNR, Selective Treatment Pain: Pain improved, Location (multiple joints; worsened off Otezla) Feelings of wellbeing/Perceived Quality of Life: Fair, Acceptable, Improved Sleep: Sleep improved (found long acting higher dose "sweet spot" sleeping better) Constipation: No Performance Status: Patient with very limited activity secondary to breathlessness. She did get a walk-in tub, is somewhat disappointed because of the length of time it takes to fill it. She has to walk up a narrow stairway once a day to get down and once a day to get up to her bedroom. She tries to minimize ambulation secondary to causes increased distress. She does spend most the time either in her kitchen or sitting in her living room.She can if she paces herself, use her walker, and drive for short distances to as was able to get her labs. - Palliative Care Discussion: Patient continues to struggle with her perception of her decreasing quality of life, has high anxiety regarding starting her O FEV, related to managing diarrhea on top of her incontinence. Given the progression of her disease, she is wondering regarding weighing benefits and burdens but is going to trial and see how she does. Patient's quality of life as long as she is able to remain independent is acceptable, she does have a POLST with DN AR/DNI and would very much like to avoid hospitalization but would accept treatment for reversible conditions Results - Lab Results Lab results reviewed: Yes Lab and Imaging Results: LFTs and CMP/CBC copies sent to PCP/[facility] Impression and Recommendations - Palliative Care Impression: This is a 71-year-old woman with idiopathic pulmonary fibrosis, respiratory failure, and high symptom burden. She does live alone, has mild short-term memory issues, but does have family support meeting her current needs. Palliative care meeting with patient to review symptoms, adjust meds as needed, patient anxious regarding starting pending Ofev. Recommendations/Counseling Done: 1. Idiopathic pulmonary fibrosis. Patient labs are within normal range, will follow up with community health nurse next labs needed, help facilitate. Patient to start her Ofev, she is having difficulty locating it. Her [id number] Micki and brother Collins, will help her. Counseling provided regarding side effects, initiation of loperamide when diarrhea starts, ordered some ondansetron in case patient has nausea. Requested she call if diarrhea not controlled with loperamide, can order lomotol. 2. Insomnia. Patient has long-term history with zolpidem, did trial zolpidem 6.25 mg sustained release, at this point in time she did use 2 tabs, which she does feel like it is "the sweet spot". We will continue this dosing. 3. Cough. This is multifactorial, does result in spasms triggered by increased activity and talking. She is using her nebulizer with the levo butyryl, unfortunately cannot use it first thing in the morning. Discussed having a nebulizer upstairs that she cannot carry it up and down the stairs. Encouraged to use scheduled 3 times daily, can use another treatment if needed, as she does find it effective. She also finds Tessalon Perles is helpful, and uses hydrocodone intermittent. We will continue to monitor. Patient does present with significant wheezing today, though attributes this to needing treatment of nebulizer and did not use this AM. 4. Anxiety. Patient does have underlying anxiety disorder, worsens with her breathlessness and hypoxia. She is managing better with intermittent use of lorazepam. She is feeling better overall. 5. Dyspnea this is her biggest symptom, does trigger anxiety and panic attacks. She does try and pace herself, she does desat significantly with any activity. Counseling problem-solving regarding creating easier environment for patient, discussed at some point transitioning bedroom downstairs though she does not feel this is worth it at this time. 6. Advanced care planning. Patient does have her DPOA, she has a new POLST with reflection of her current goals with that she is DN AR/DNI and selective treatments. Patient would like to avoid hospitalization. She would like to stay independent as long as possible as this is what defines her quality of life. She does see this as deteriorating. She will continue to weigh benefits of Ofev in the context of her current situation and ensuing side effects. 60 minutes with greater than 50% of this done in counseling regarding symptom management, anticipatory guidance, coordination of care with pulmonary team
== END 2021-11-12 11:31 | disposition home or self-care (01) ==
LOC: PC 11:30
PROVIDERS: ATTEND Nurse Practitioner Adult Health
DX: Z51.5 Encounter for palliative care (principal); J84.112 Idiopathic pulmonary fibrosis; J44.9 Chronic obstructive pulmonary disease, unspecified; J96.10 Chronic respiratory failure, unspecified whether with hypoxia or hypercapnia; G47.00 Insomnia, unspecified; F41.9 Anxiety disorder, unspecified; Z79.899 Other long term (current) drug therapy; Z99.81 Dependence on supplemental oxygen; Z74.1 Need for assistance with personal care; Z66 Do not resuscitate
CPT/HCPCS: 99350

== ENCOUNTER 2021-12-15 13:00 | Outpatient (CLI) | payer MEDICARE ==
[2021-12-15 20:12] LABS: ALBUMIN 4.2 g/dL (3.2-5.5); BILIRUBIN,DIRECT 0.1 mg/dL (0.1-0.5); BILIRUBIN,TOTAL 0.6 mg/dL (0.2-1.0); TOTAL PROTEIN 8.1 g/dL (6.7-8.2)
== END 2021-12-15 13:01 | disposition home or self-care (01) ==
LOC: LAB.S 13:00
PROVIDERS: ATTEND Nurse Practitioner
DX: Z79.899 Other long term (current) drug therapy (principal)
CPT/HCPCS: 36415; 80076

== ENCOUNTER 2022-01-08 14:38 | Outpatient (CLI) | payer MEDICARE ==
[2022-01-08 20:01] LABS: BASOPHILS % (AUTO) 0.4 %; EOSINOPHILS # (AUTO) 0.8 10^3/uL (0.0-0.7); HCT - HEMATOCRIT 36.4 % (37.0-47.0); HGB - HEMOGLOBIN 12.3 g/dL (12.0-16.0); LYMPHOCYTES # (AUTO) 1.8 10^3/uL (1.5-3.5); LYMPHOCYTES % (AUTO) 17.3 %; MEAN CORPUSCULAR HEMOGLOBIN 32.5 pg (27.0-31.0); MEAN CORPUSCULAR HGB CONC 33.8 g/dL (32.0-36.0); MEAN PLATELET VOLUME 10.6 fL (7.9-10.8); MONOCYTES % (AUTO) 9.1 %; NEUTROPHILS # (AUTO) 6.9 10^3/uL (1.5-6.6); PLT - PLATELET COUNT 315 10^3/uL (130-450); RED BLOOD COUNT 3.79 10^6/uL (4.20-5.40); RED CELL DISTRIBUTION WIDTH 13.3 % (12.0-15.0); WHITE BLOOD COUNT 10.6 x10^3/uL (4.8-10.8)
[2022-01-08 20:28] LABS: ALBUMIN 3.8 g/dL (3.2-5.5); BILIRUBIN,DIRECT 0.1 mg/dL (0.1-0.5); BILIRUBIN,TOTAL 0.9 mg/dL (0.2-1.0); TOTAL PROTEIN 7.5 g/dL (6.7-8.2)
[2022-01-10 10:48] LABS: HEPATITIS A IGM NON-REACTIVE (NON-REACTIVE); HEPATITIS B CORE ANTIBODY IGM NON-REACTIVE (NON-REACTIVE); HEPATITIS B SURFACE ANTIGEN NON-REACTIVE (NON-REACTIVE); HEPATITIS C ANTIBODY NON-REACTIVE (NON-REACTIVE)
[2022-01-12 15:47] LABS: NIL 0.02 IU/mL
== END 2022-01-08 14:39 | disposition home or self-care (01) ==
LOC: LAB.S 14:38
PROVIDERS: ATTEND Nurse Practitioner Family
DX: L40.0 Psoriasis vulgaris (principal); Z79.899 Other long term (current) drug therapy
CPT/HCPCS: 36415; 80074; 80076; 85025; 86480

== ENCOUNTER 2022-01-21 14:50 | Outpatient (CLI) | payer MEDICARE ==
--- NOTE | 2022-01-21 21:23 | CONSULTATION NOTE ---
Palliative Care Follow Up - Referral Referring Provider: Rachel LEBLANC Time of Visit: [id number] Referral setting: Home Referral Reason: Psoriasis/Chronic Respiratory Failure/Pulmonary Fibrosis/COPD/Grief RX - Information Sources Records reviewed: Previous records reviewed History/Review of Systems obtained from: Patient Exam limitations: Clinical condition (mild STM issues) - History of Present Illness Update Brief HPI Update: This is a 71-year-old woman with known advanced idiopathic pulmonary fibrosis, chronic respiratory failure on continuous oxygen, and advanced COPD. She continues to struggle with high symptom burdens of cough, severe dyspnea with any activity, chronic osteoarthritic pain, insomnia, and severe psoriasis. She has started her over health, with diarrhea but had continued to worsen. Her liver enzymes have been within normal limits. Because of her quality of life and worsening psoriasis, she had rash was worsening, itching was worsening, no topicals were touching it and her life was pretty miserable. She decided she would prefer to treat her psoriasis versus her pulmonary hypertension. Her new medication has arrived today, it is an injectable, Chinyereiznevin, agreed I would give first dose and watch for reaction. She continues to use the nebulizer about every 4 hours, continues with severe's coughing spasms these are medicated by her Tessalon Perles and intermittent hydrocodone up to 2-3 times a day as well as pacing her activities. She also continues to struggle with her anxiety, which has significantly exacerbated with the recent of her ex- unexpectedly. She is planning a memorial for him. Concern regarding patient's long-term chronic alcohol intake, from family about worrying it has increased. Patient reports continuing her 4 glasses of wine nightly, which is her baseline, she does not perceive she is increase this at a significant level, but is co unseled on risks given her use of opioids and benzos. 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 She is , unfortunately her ex- who is actually quite a support to her, recently passed. 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 She has some paid assistance every other week but continues to be quite limited. Medications/Allergies - Medications Home Medications: Ambulatory Orders Medication Instructions Recorded Confirmed Citalopram [CeleXA] 40 mg PO DAILY 09/25/13 01/21/22 Levothyroxine [Synthroid] 75 mcg PO DAILY 09/25/13 01/21/22 LORazepam [Ativan] 0.25 - 0.5 mg PO QID PRN 09/24/21 01/21/22 Levalbuterol Tartrate 1 - 2 puffs INH Q4HR PRN 09/24/21 01/21/22 [Levalbuterol Tartrate Hfa] Levalbuterol [Xopenex] 1 amp NEB TID MDD q4 09/24/21 01/21/22 Loperamide [Imodium] 2 mg PO Q4HR PRN 09/24/21 01/21/22 Omeprazole Magnesium 20 mg PO DAILY 09/24/21 01/21/22 Benzonatate [Tessalon] 100 mg PO TID PRN 09/26/21 01/21/22 Hydrocodone/Acetaminophen 0.5 - 1 tab PO Q4HR PRN 10/09/21 01/21/22 [Hydrocodone-Acetamin 10-325 mg] Zolpidem Tartrate [Zolpidem 12.5 mg PO QPM 10/09/21 01/21/22 Tartrate ER] Ondansetron [Zuplenz] 4 mg PO Q6HR PRN 11/14/21 01/21/22 Risankizumab-Rzaa [Skyrizi Pen] 1 syr SQ ONCE MDD repeat in 4 weeks 01/21/22 01/21/22 - Allergies Allergies/Adverse Reactions: Allergies Allergy/AdvReac Type Severity Reaction Status Date / Time prednisone AdvReac Anxiety Verified 09/18/21 20:16 Review of Systems - Constitutional Constitutional: reports: Fatigue (remains persistent), Weakness, Weight gain - Eyes Eyes: reports: Vision loss, Corrective lenses - Ears, Nose & Throat Ears, Nose & Throat: reports: Hoarseness (improved), Dry mouth - Cardiovascular Cardiovascular: reports: Palpitations (with exertion), Lightheadedness, Exertional dyspnea, Decr. exercise tolerance - Respiratory Respiratory: reports: Cough (less than previously; managing with neb, hydrocodone 1-2 x day ; tessolon perles a few times a day;), Sputum production, SOB at rest, SOB with exertion - Gastrointestinal Gastrointestinal: reports: Diarrhea (diarrhea worsened; still residual taking immodium only bid), Nausea (low grade nausea with ofev, improving), Early satiety - Genitourinary Genitourinary: reports: Incontinence - Musculoskeletal Musculoskeletal: reports: Back pain, Stiffness, Muscle weakness - Integumentary Integumentary: reports: Rash (psorasis worse on buttocks/"crotch"; now on face/chest; worsening on scalp), Pruritis, Dryness - Neurological Neurological: reports: General weakness, Numbness (peripheral neuropathy), Memory problems - Psychiatric Psychiatric: reports: Depression, Anxiety (feeling better with intermittent lorazepam). denies: Suicidal - Endocrine Endocrine: reports: Hypothyroidism, Intolerance to cold - Hematologic/Lymphatic Hematologic/Lymph: reports: Bruising - All Other Systems All Other Systems: reports: Reviewed and negative Physical Exam - Vital Signs Temperature: 97.4 C Pulse Rate: 74 Respiratory Rate: 18 O2 Saturation: 98 (on 3 liters) Blood Pressure: 138/72 - Physical Exam General Appearance: positive: No acute distress, Alert, Anxious Eyes Bilateral: positive: Normal inspection ENT: positive: No signs of dehydration Neck: positive: Trachea midline Cardiovascular: positive: Regular rate & rhythm Respiratory: positive: Chest non-tender, Diminished throughout, Wheezes (coarse wheezes throughout), Other (cough high pitched/tight spasms). negative: No respiratory distress (RR increased with conversation/cough) Abdomen: positive: Soft, Obese Skin: positive: Pallor, Dryness Extremities: positive: No pedal edema Neurologic/Psychiatric: positive: Oriented x3, Mood/affect nml, Weakness, Flat affect Palliative Care - POLST Patient has POLST: Yes POLST Status: DNR, Selective Treatment Pain: Pain worsening, Location (left hip and groin; multiple joints) Tiredness/Fatigue: Moderate (4-6) Drowsiness/Sedation: Moderate (4-6) Nausea: Mild (1-3) (improved off Ofev) Anorexia: Mild (1-3) Dyspnea: Severe (7-10) Depression: Moderate (4-6) Anxiety: Moderate (4-6) Feelings of wellbeing/Perceived Quality of Life: Fair, Acceptable, Worsening Sleep: Sleep improved Constipation: No Performance Status: Activity tolerance continues to be problematic, she does have to pace herself. She spends most the time sitting, unfortunate limits her as far as being able to cook, and do things she enjoys. She can use her scooter for longer distances. She does drive for short distances but it is difficult to go out as well she gets easily overwhelmed both physically and emotionally.She got a new hot tub, and is wanting to use it but fearful about managing getting in and out, will wait for her [id number] to be present. - Palliative Care Discussion: Discussion today centered around patient's anxiety, care home alcohol use and fluctuating mood. Patient denies any suicidal ideation, actually is quite involved in planning for her ex-. She still finds some alexandra in watching her birds and looking at her black view. Patient is hopeful once psoriasis under control, will feel better overall.Patient is quite clear her quality of life continues to deteriorate, at this point in time is still acceptable. She would not want anything to prolong her suffering, and is ready to go when it is her time. Discussion regarding what is helpful as far as support,, patient would like to avoid hospitalization but still would except treatment for reversible conditions. Patient is a DN AR/DNI with selective treatments Results - Lab Results Lab results reviewed: Yes Lab and Imaging Results: Patient reports she had TB testing and hep C in preparation for Skyrizi with negative results Impression and Recommendations - Palliative Care Impression: This is a 71-year-old woman with idiopathic pulmonary fibrosis, chronic respiratory failure, high symptom burden, and exacerbation of psoriasis. She is to start new treatment, she is chosen is over continuing her Ofev. She does live alone, has mild short-term memory issues but does have support to meet her current needs. She has had an exacerbation her anxiety and grief reaction with recent loss of her ex-. Palliative care continue to meet with patient provide support for symptom management, provide anticipatory guidance and transition to hospice when appropriate Recommendations/Counseling Done: 1. Psoriasis. Patient to start her new pen injection Skyrizi today, it did get delivered while I was there. It is a pen injector, 1 time and then repeat in 4 weeks, then every 12 weeks. Read through instructions, did agree I would go ahead and administer secondary to first injection as well as anxiousness regarding using pen. Patient given medication, observed for 30 minutes without any significant side effects. Agreed would arrange my visit for her next shot.We reviewed side effects, which of course were increased risk for upper respiratory infection, fatigue, and patient has been counseled by specialty pharmacy as well. 2. Idiopathic pulmonary fibrosis. She has now stopped her Ofev, she was having worsening loose stools. She still has some residual of this, and some incontinence of stool which is quite distressing for her. Patient is only been taking Imodium 2 times a day, instructed could take up to 8 tablets a day, she will go ahead and schedule herself 4 times daily, for couple days to get on top of it, and then titrate back to normal bowel movements. Patient verbalized understanding and written instructions left. 3. Anxiety. This is been exacerbated by her recent grief reaction and loss. Patient long-term alcohol use disorder, had a shannan discussion regarding her current and continuous use, does feel like she has not changed her habits, we did discuss though given her underlying diagnosis, high risk for respiratory depression, as well as high tolerance. Counseling provided regarding danger of mixing medications, patient acknowledged understanding, and acknowledged she has been counseled. She is aware of the risk and dangers, but has chosen otherwise to continue. We did discuss concerns and past behaviors and ways to mitigate her stress. Patient is feeling like she is improving, and denies any suicidality. 4. Dyspnea. This continues to be her most significant symptom complicated by coughing spasms leading to anxiety and panic attacks. She does try to pace herself but continues to desat significantly with any activity. Patient using her current tools, is keeping on top of her nebulizers, and watching timing of medications. 5. Grief reaction. Reviewed patient's concerns, patient is planning for memorial, patient expressing appropriate symptoms of grief and loss. She has also lost some practical support. Normalized her current feelings and support for planning. 6. Advance care planning. Patient does have a DPOA, has new POLST reflective of her current goals that she is a DN AR/DNI and selective treatments. Patient's goals are to remain independent as long as possible and what defines her current quality definition of quality of life. She does see her self declining. She has made a decision to treat her psoriasis over her pulmonary hypertension, as a quality of life measure. 70 minutes with greater than 50% of this done in counseling regarding new medication, administration of Skyrizi and watching for side effects, review of pain and symptom management, counseling regarding alcohol use disorder, and anticipatory guidance.
== END 2022-01-21 14:51 | disposition home or self-care (01) ==
LOC: PC 14:50
PROVIDERS: ATTEND Nurse Practitioner Adult Health
DX: Z51.5 Encounter for palliative care (principal); L40.9 Psoriasis, unspecified; J84.112 Idiopathic pulmonary fibrosis; J96.10 Chronic respiratory failure, unspecified whether with hypoxia or hypercapnia; J44.9 Chronic obstructive pulmonary disease, unspecified; R53.1 Weakness; F43.22 Adjustment disorder with anxiety; Z72.89 Other problems related to lifestyle; Z79.899 Other long term (current) drug therapy; Z99.81 Dependence on supplemental oxygen; Z63.4 Disappearance and death of family member; Z74.1 Need for assistance with personal care; Z66 Do not resuscitate
CPT/HCPCS: 99350

== ENCOUNTER 2022-02-13 08:00 | Outpatient (CLI) | payer MEDICARE ==
--- NOTE | 2022-02-13 14:05 | XRAY Report ---
PROCEDURE: Chest 2 View X-Ray INDICATIONS: IDIOPATHIC PULMONARY FIBROSIS/THORAX MUSCLE STRAIN FRONT WALL TECHNIQUE: 2 view(s) of the chest. COMPARISON: 09/18/2021 and 10/27/2019. FINDINGS: Surgical changes and devices: None. Lungs and pleura: No pleural effusions or pneumothorax. Interstitial thickening and bilateral lung g roundglass opacities no significant change compared to 09/18/2021. Increased opacification noted in t he right lung base. mediastinum: Mediastinal contours are normal. Heart size is normal. Bones and chest wall: No suspicious bony abnormalities. Soft tissues appear unremarkable. IMPRESSION: 1. Bilateral lung chronic interstitial lung disease compatible with reported history of IPF. 2. New opacification in the right lung base which can represent atelectasis or pneumonia. Reviewed by: Peri Hobson MD, PhD on 02/13/2022 2:04 PM PDT Approved by: Peri Hobson MD, PhD on 02/13/2022 2:04 PM PDT Station ID: [id number]
== END 2022-02-13 23:59 | disposition home or self-care (01) ==
LOC: DI.S 08:00
PROVIDERS: ATTEND Emergency Medicine
DX: J84.112 Idiopathic pulmonary fibrosis (principal); S29.011A Strain of muscle and tendon of front wall of thorax, initial encounter; R91.8 Other nonspecific abnormal finding of lung field

== ENCOUNTER 2022-02-13 14:15 | Outpatient (CLI) | payer MEDICARE | END 2022-02-13 14:16 | disposition short-term general hospital (02) | LOC: EMS 14:15 | DX: R91.8 Other nonspecific abnormal finding of lung field (principal); R06.2 Wheezing; Z99.81 Dependence on supplemental oxygen; M54.9 Dorsalgia, unspecified | CPT/HCPCS: A0425; A0429 ==

== ENCOUNTER 2022-02-20 11:15 | Outpatient (CLI) | payer MEDICARE ==
--- NOTE | 2022-02-20 14:08 | CONSULTATION NOTE ---
Palliative Care Follow Up - Referral Referring Provider: Rachel LEBLANC Time of Visit: 4686-1055 Referral setting: Home Referral Reason: Right Flank Pain/pneumonia RLL/Pulmonary HTN/Psoriasis - Information Sources Records reviewed: Previous records reviewed History/Review of Systems obtained from: Patient, Other (ED notes) Exam limitations: Clinical condition (STM) - History of Present Illness Update Brief HPI Update: This is a 71-year-old woman who presented on 02/13 for severe right flank pain, with original screening exam at urgent care visit. Patient then was sent to [facility] ED, unfortunately this was a very long and extended stay in the ED, but did get further for kidney stones, without there secondary to worsening right lower lobe opacity in her lungs. Patient has fci standing worsening pulmonary hypertension and COPD. Because of her right flank pain, was worked up for r/o of neprolithiasis. 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 She has been using cyclobenzaprine with good response, it is continuing to improve. On palpation and palpate point tenderness and discomfort, worsening discomfort with deep inspiration, reports she has had this happen before. Most likely was exacerbated by cough and underlying pneumonia. Patient has finished her antibiotics she was put on cefdinir and azithromycin, receiving first dose of ceftriaxone in the ED on 02/13. Patient denies any increased difficulty with cough, increased or change in sputum, no fever or chills, nor worse breathlessness from her underlying disease process. Patient also recently off Ofev, to be able to go up on her new psoriasis medication Skyrizi. She has only noticed a few spots of improvement in her rashes. She has seen the dermatology recently, and has several different tubes she is using topically, with assistance was able to identify which areas go on which and feels she is able to be more accurate and adherent with the topicals now. She recently got a bidet, is awaiting to install it, as her buttocks area is also a place of severe discomfort. She reports she is having some increased difficulty with sleep, have discussed she is at her maximum with her zolpidem, she is not interested in changing her medication. We did talk about other strategies with her medication use and sleep hygiene. She did have her for her ex-, feels like she was able to move some through the grief. She had a black visit with her friend who helped her with the ceremony She is still having fluctuating depression and sadness, but is hopeful this will continue to improve as well. Past Medical History: COPD, CPAP use, idiopathic pulmonary fibrosis for greater than 5 years, peripheral neuropathy, hypothyroidism, chronic diarrhea, incontinence, depression, anxiety, panic attacks, osteoarthritis, fatigue, psoriasis, history of hand surgery and cataracts Social History - Living Situation Living arrangement: At home Living Situation: Alone Support System: Patient lives alone, her brother lives down the road and [id number] are easily accessible. Patient is , with recent of her ex-, and previously. 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 She does have some paid assistance, but continues to be quite limited. Medications/Allergies - Medications Home Medications: Ambulatory Orders Medication Instructions Recorded Confirmed Citalopram [CeleXA] 40 mg PO DAILY 09/25/13 02/23/22 Levothyroxine [Synthroid] 75 mcg PO DAILY 09/25/13 02/23/22 LORazepam [Ativan] 0.25 - 0.5 mg PO QID PRN 09/24/21 02/23/22 Levalbuterol Tartrate 1 - 2 puffs INH Q4HR PRN 09/24/21 02/23/22 [Levalbuterol Tartrate Hfa] Levalbuterol [Xopenex] 1 amp NEB TID MDD q4 09/24/21 02/23/22 Loperamide [Imodium] 2 mg PO Q4HR PRN 09/24/21 02/23/22 Omeprazole Magnesium 20 mg PO DAILY 09/24/21 02/23/22 Benzonatate [Tessalon] 100 mg PO TID PRN 09/26/21 02/23/22 Hydrocodone/Acetaminophen 0.5 - 1 tab PO Q4HR PRN 10/09/21 02/23/22 [Hydrocodone-Acetamin 10-325 mg] Zolpidem Tartrate [Zolpidem 12.5 mg PO QPM 10/09/21 02/23/22 Tartrate ER] Ondansetron [Zuplenz] 4 mg PO Q6HR PRN 11/14/21 02/23/22 Risankizumab-Rzaa [Skyrizi Pen] 1 syr SQ ONCE MDD repeat in 3 01/21/22 02/23/22 months Cyclobenzaprine HCl 5 - 10 mg PO TID PRN MDD 10 days 02/23/22 02/23/22 - Allergies Allergies/Adverse Reactions: Allergies Allergy/AdvReac Type Severity Reaction Status Date / Time prednisone AdvReac Anxiety Verified 09/18/21 20:16 Review of Systems - Constitutional Constitutional: reports: Fatigue (remains persistent), Weakness, Weight gain (240) - Eyes Eyes: reports: Vision loss, Corrective lenses - Ears, Nose & Throat Ears, Nose & Throat: reports: Hoarseness (improved), Dry mouth - Cardiovascular Cardiovascular: reports: Palpitations (with exertion), Lightheadedness, Exertional dyspnea, Decr. exercise tolerance - Respiratory Respiratory: reports: Cough (less than previously; managing with neb, hydrocodone 1-2 x day ; tessolon perles a few times a day; improved with AB), Sputum production, SOB at rest, SOB with exertion - Gastrointestinal Gastrointestinal: reports: Diarrhea (diarrhea worsened; unclear if related to recent AB or psoriasis med), Early satiety - Genitourinary Genitourinary: reports: Incontinence - Musculoskeletal Musculoskeletal: reports: Muscle pain (right flank pain/spasms responsive to cyclobenzaprine and improving), Back pain, Stiffness, Muscle weakness - Integumentary Integumentary: reports: Rash (psorasis worse on buttocks/"crotch"; now on face/chest; worsening on scalp; recent to derm able to give more directions on creams/ointments; disappointed not seeing better response with new med), Pruritis, Dryness - Neurological Neurological: reports: General weakness, Numbness (peripheral neuropathy), Memory problems - Psychiatric Psychiatric: reports: Depression, Anxiety (feeling better with intermittent lorazepam). denies: Suicidal - Endocrine Endocrine: reports: Hypothyroidism, Intolerance to cold - Hematologic/Lymphatic Hematologic/Lymph: reports: Bruising - All Other Systems All Other Systems: reports: Reviewed and negative Physical Exam - Vital Signs Temperature: 97.0 C Pulse Rate: 78 Respiratory Rate: 18 O2 Saturation: 98 (ra @ rest) Blood Pressure: 128/82 - Physical Exam General Appearance: positive: Alert, Mild distress, Anxious Eyes Bilateral: positive: Normal inspection ENT: positive: No signs of dehydration Neck: positive: Trachea midline Cardiovascular: positive: Regular rate & rhythm Respiratory: positive: Diminished throughout, Wheezes (coarse wheezes throughout). negative: Chest non-tender (tenderness posterior lower thoracic area), No respiratory distress (RR increased with conversation/cough) Abdomen: positive: Soft, Obese Skin: positive: Pallor, Dryness Extremities: positive: No pedal edema Neurologic/Psychiatric: positive: Oriented x3, Mood/affect nml, Weakness, Flat affect Palliative Care - POLST Patient has POLST: Yes POLST Status: DNR, Selective Treatment Pain: Pain improved, Location (right flank), Severity (10 was 10), Comment (use up oxycodone from ED; using hydrocodone/flexiril with relief) Tiredness/Fatigue: Severe (7-10) Drowsiness/Sedation: Mild (1-3) Nausea: Mild (1-3) Anorexia: Mild (1-3) Dyspnea: Severe (7-10) Depression: Moderate (4-6) Anxiety: Moderate (4-6) Feelings of wellbeing/Perceived Quality of Life: Fair, Acceptable, Worsening Performance Status: Activity intolerance continues to be problematic, mostly impacted by breathing and deconditioning. She does have to pace herself. She does spend most of her time sitting, but can do meal prep. She comes down from upstairs once a day, she can drive herself for short distance but is difficult. Going out is such that she gets easily overwhelmed both physically and emotionally. - Palliative Care Discussion: Discussion today centered around follow-up on ex-'s , time with friends, processing grief. We also discussed her recent trip to ED, feeling very vulnerable as she has very little outside community other than brother and [id number], who were not in town. She is less able to enjoy things that used to help her pass the time, finds herself watching TV, feeling isolated. She does have a neighbor who is quite attentive, but he is getting ready to leave on a long trip. She continues to feel vulnerable and struggled with her issues around quality of life. Results - Lab Results Lab results reviewed: Yes Lab and Imaging Results: Labs from 520 ED visit sodium 134, potassium 4.5, BUN 7, creatinine 1.01, albumin 4.1, total protein 7.7, ALT 58, GFR 59, WBC 9.7, hemoglobin 12.7, hematocrit 38.7, Impression and Recommendations - Palliative Care Impression: This is a 71-year-old woman with known idiopathic pulmonary fibrosis, chronic respiratory failure, high symptom burden and recent exacerbation of psoriasis. She did present 02/13 with right flank pain, attributed to muscle strain with cough, as well as right lower lobe pneumonia, finishing her antibiotics. She does live alone, has short-term memory issues but is able to meet her current needs. Palliative care continue to meet with patient to provide support for symptom management, anticipatory guidance, and transition to hospice when appropriate Recommendations/Counseling Done: 1. Right flank pain. This is a muscle spasm, most likely exacerbated by coughing. It is responding to cyclobenzaprine, 10 mg up to 3 times a day, is titrating off but still needing intermittent medication both hydrocodone 5 mg / 325 mg up to 3 times a day as well as cyclobenzaprine 10 mg 2-3 times a day, did refill prescription, counseled on short-term use, and not to mix with alcohol. Patient verbalized understanding. Counseling also to augment with heat. 2. Psoriasis. Patient started her Skyrizi last month, has not seen significant improvement, though has met with dermatology and has topicals, feels like she has a better handle on this. Patient given medication Skyrizi today, and tolerated it without difficulty. She will get an injection every 12 weeks from this point on. She does have diarrhea, though unclear if this is related to recent antibiotics. Of note Skyrizi does increase risk for upper respiratory infection. 3. Right lower lobe pneumonia. Patient has completed her azithromycin and cefdinir. Patient reports decrease "wetness" and noted improvement with cough and wheezing. 4. Anxiety. This has been exacerbated by recent grief reaction and loss of her ex-. Patient has long-term alcohol use disorder, has continued to use, though does report has decreased this last few weeks. Patient has been counseled regarding dangers of mixing medications, patient acknowledges understanding and acknowledges she has been counseled. Patient feels like she is doing a little better than her last visit, continues to feel isolated and concerned with quality of life. 5. Idiopathic pulmonary fibrosis. She is now off her Ofev, is concerned about her ongoing decline and ability to remain independent. Now with recent exacerbation of pulmonary infection, at this point continues to feel managing independently without need of additional help. She is maximizing use of nebulizers, and compliant with current medications. 6. Advanced care planning. Patient does have DPOA, POLST reflective of her current goals she is a DN AR/DNI and selective treatments. Continue to have conversations and processing regarding quality of life and patient's overall goals for managing her condition. Goal is to transition to hospice when appropriate. 45 minutes with greater than 50% of this spent in counseling regarding pain and symptom management, safety of medications, provided shot of vez, plan to revisit in 6 weeks unless otherwise needed.
== END 2022-02-20 11:16 | disposition home or self-care (01) ==
LOC: PC 11:15
PROVIDERS: ATTEND Nurse Practitioner Adult Health
DX: Z51.5 Encounter for palliative care (principal); R10.31 Right lower quadrant pain; R25.2 Cramp and spasm; L40.9 Psoriasis, unspecified; J44.9 Chronic obstructive pulmonary disease, unspecified; J84.112 Idiopathic pulmonary fibrosis; J96.10 Chronic respiratory failure, unspecified whether with hypoxia or hypercapnia; J18.9 Pneumonia, unspecified organism; F41.9 Anxiety disorder, unspecified; Z72.89 Other problems related to lifestyle; Z79.899 Other long term (current) drug therapy; Z63.4 Disappearance and death of family member; Z74.1 Need for assistance with personal care; Z60.2 Problems related to living alone; Z66 Do not resuscitate
CPT/HCPCS: 99349

== ENCOUNTER 2022-03-19 13:12 | Outpatient (CLI) | payer MEDICARE ==
[2022-03-19 20:14] LABS: ALBUMIN 3.9 g/dL (3.2-5.5); BILIRUBIN,DIRECT 0.1 mg/dL (0.1-0.5); BILIRUBIN,TOTAL 0.6 mg/dL (0.2-1.0); TOTAL PROTEIN 7.8 g/dL (6.7-8.2)
[2022-03-19 20:46] LABS: THYROID STIMULATING HORMONE 3.69 uIU/mL (0.34-5.60)
== END 2022-03-19 13:13 | disposition home or self-care (01) ==
LOC: LAB.S 13:12
PROVIDERS: ATTEND Registered Nurse
DX: Z79.899 Other long term (current) drug therapy (principal); E03.9 Hypothyroidism, unspecified
CPT/HCPCS: 36415; 80076; 84443

== ENCOUNTER 2022-06-04 12:59 | Outpatient (CLI) | payer MEDICARE ==
[2022-06-04 15:38] LABS: BASOPHILS # (AUTO) 0.1 10^3/uL (0.0-0.1); BASOPHILS % (AUTO) 0.4 %; EOSINOPHILS # (AUTO) 0.1 10^3/uL (0.0-0.7); EOSINOPHILS % (AUTO) 0.5 %; HCT - HEMATOCRIT 38.2 % (37.0-47.0); HGB - HEMOGLOBIN 12.7 g/dL (12.0-16.0); LYMPHOCYTES # (AUTO) 2.7 10^3/uL (1.5-3.5); LYMPHOCYTES % (AUTO) 14.1 %; MEAN CORPUSCULAR HEMOGLOBIN 31.8 pg (27.0-31.0); MEAN CORPUSCULAR HGB CONC 33.2 g/dL (32.0-36.0); MEAN CORPUSCULAR VOLUME 95.5 fL (81.0-99.0); MONOCYTES # (AUTO) 1.8 10^3/uL (0.0-1.0); MONOCYTES % (AUTO) 9.3 %; NEUTROPHILS # (AUTO) 14.2 10^3/uL (1.5-6.6); NEUTROPHILS % (AUTO) 73.3 %; PLT - PLATELET COUNT 400 10^3/uL (130-450); RED CELL DISTRIBUTION WIDTH 13.2 % (12.0-15.0); WHITE BLOOD COUNT 19.3 x10^3/uL (4.8-10.8)
[2022-06-04 15:57] LABS: SLIDE REVIEW? Indicated
[2022-06-04 16:54] LABS: ALBUMIN 3.7 g/dL (3.2-5.5); ALKALINE PHOSPHATASE 66 IU/L (42-121); ALT ALANINE AMINOTRANSFERASE 14 IU/L (10-60); AST ASPARTATE AMINOTRANSFERASE 24 IU/L (10-42); BILIRUBIN,TOTAL 0.4 mg/dL (0.2-1.0); TOTAL PROTEIN 7.3 g/dL (6.7-8.2)
[2022-06-04 17:09] LABS: BILIRUBIN,DIRECT < 0.1 mg/dL (0.1-0.5)
[2022-06-04 17:20] LABS: PLATELET ESTIMATE, MANUAL NORMAL (130-450,000) (NORMAL); PLATELET MORPHOLOGY NORMAL APPEARANCE (NORMAL); RBC MORPHOLOGY (MULTIPLE) NORMAL APPEARANCE (NORMAL)
[2022-06-04 17:21] LABS: DIFFERENTIAL COMMENT MANUAL=AUTO DIFF
== END 2022-06-04 13:00 | disposition home or self-care (01) ==
LOC: LAB.S 12:59
PROVIDERS: ATTEND Nurse Practitioner Family
DX: L40.0 Psoriasis vulgaris (principal); Z79.899 Other long term (current) drug therapy
CPT/HCPCS: 36415; 80076; 85025

== ENCOUNTER 2022-06-10 22:28 | Outpatient (CLI) | payer MEDICARE | END 2022-06-10 22:29 | disposition critical access hospital (66) | LOC: EMS 22:28 | DX: R53.1 Weakness (principal); R26.2 Difficulty in walking, not elsewhere classified; Z99.81 Dependence on supplemental oxygen; J44.9 Chronic obstructive pulmonary disease, unspecified | CPT/HCPCS: A0425; A0429 ==